=== PATIENT | female | born 1950 | race Caucasian/White ===

== ENCOUNTER 2016-11-04 10:19 | Inpatient (IN) ==
[2016-11-04] MEDS ORDERED: SODIUM CHLORIDE 0.9% 500 ML IV STA (11:12)
--- NOTE | 2016-11-04 11:14 | EKG Report ---
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
[2016-11-04 11:21] LABS: Basophils % 0.4 % (0.0-0.8); Eosinophils # 0.1 10*3/uL (0.0-0.87); Hematocrit 18.3 VOL% (35.7-47.0); Immature Granulocytes % 0.9 %; Immature Granulocytes Absolute 0.04 #; Lymphocytes # 1.3 10*3/uL (1.4-4.0); Mean Corpuscular HGB Conc 32.2 GM/DL (32-36); Mean Corpuscular Hemoglobin 29 PG (27-34); Mean Corpuscular Volume 88.8 FL (87-102); Mean Platelet Volume 9.9 FL (9.6-12.0); Monocytes # 0.6 10*3/uL (0.11-0.8); Monocytes % 12.1 % (1.7-12.7); Neutrophils # 2.6 10*3/uL (1.4-7.4); Neutrophils % 56.6 % (38.7-73.9); Platelet Count 142 T/CUMM (130-400); Red Blood Count 2.06 MC/CUMM (3.8-5.5); Red Cell Distribution Width 14.9 % (9.3-17.3); White Blood Count 4.6 T/CUMM (4-12)
[2016-11-04 11:30] LABS: Hemoglobin 5.9 GM/DL (12.0-16.0)
[2016-11-04 11:30] LABS: Albumin 2.7 G/DL (3.4-5.0); Bilirubin,Total 0.4 MG/DL (0.2-1.0); Osmolality,Calculated 280.5 MOS/KG (273-304); Total Protein 5.4 G/DL (6.4-8.3)
[2016-11-04] MEDS ORDERED: SODIUM CHLORIDE 0.9% 250 ML IV PRN (11:31)
--- NOTE | 2016-11-04 11:34 | Emergency Department Note ---
Quinton Morales Brittany, am scribing for, and in the presence of, Yakov Murray MD 10:37. Trevor Morales Phillip K, MD, personally performed the services described in this documentation, ascribed by Zandra Alcantara in my presence, and it is both accurate and complete . Arrival - Arrival Chief Complaint: Syncope Stated Complaint: near syncopal episode ED Nursing Triage Note: Patient reports three week history of rectal bleeding; which she was previously evaluated at [facility] and discharged one week ago. Today she was at her PCP at the [facility] and begin to feel dizzy , weak, and had a near syncopal episode. She denies nausea, vomiting, or chest pain during the near syncopal episode. Her glucose was 167 per EMS. Mode of Arrival: Stretcher Limitations: No Limitations Source: Patient, RN Notes Reviewed - History of Present Illness HPI Narrative: Patient is a 66 y/o white female presenting to the ED via EMS for further evaluation of near syncopal episode today while visiting her PCP Greer Wynn NP at the [facility]. Patient states that she began upon standing to walk to the to the experience vertigo, weakness, and then began to feel near syncopal. Reports lower back pain x1 week, but denies any recent injuries. Patient denies any associated SOB, chest pain, nausea, or vomiting during this episode. Patient reports a 3 week history of rectal bleeding with which she was seen and evaluated at [facility], DC'd about a week ago. States she presented to see PCP today due to noticing her stools being dark prior to beginning Iron therapy a week ago. Was not on anticoagulant therapy prior having rectal bleeding. History of Diverticulitis. While at [facility] had a scope performed and was told she had a pocket. Patient continued to have rectal bleeding and began to have some vaginal bleeding, she was seen by Dr. Gomez about this but was not told what caused her vaginal bleeding. Was given 2 units of blood about 1.5 weeks ago at [facility] prior to transfer to [facility]. Per EMS patient had a blood glucose level of 167 on the scene and was given a 500 mL bolus of NS en route to the ED. No other complaints. Allergies/Adverse Reactions: Allergies Allergy/AdvReac Type Severity Reaction Status Date / Time Sulfa (Sulfonamide Allergy Intermediate HIVES Verified 08/06/15 09:47 Antibiotics) Review of System - Review of System 12 point system: reviewed and no additional remarkable complaints except as stated - Review of System Constitutional: Present: weakness. Absent: chills, diaphoresis, fever Eyes: Absent: vision change Head/Ears/Nose/Throat: Absent: nasal drainage, sore throat Respiratory: Absent: respiratory distress Cardiovascular: Present: syncope (near). Absent: chest pain Gastrointestinal: Absent: nausea, vomiting Musculoskeletal: Absent: lower back pain Neurological: Present: vertigo Psychiatric: Absent: anxiety, depression Medical,Surgical,& Family Hx - Medical History Cardio: History of: Hypertension Endocrine: History of: Diabetes Mellitus (IDDM) Respiratory: History of: Bronchitis Genitourinary: History of: Recurring Urinary Tract Infections Gastrointestinal: History of: Gastrointestinal Bleed - Surgical History Abdominal Surgeries: Surgical HX of: Colonoscopy, EGD - Family History Family History: Reports;: Family Cancer (Melanoma-brother), Family Diabetes, Family Heart Disease (CHF mother) - Social History Smoking Status: Never smoker Frequency of Alcohol Use: None Type of Drug Use: None Exam Vital Signs: Vital Signs Temperature 99.5 F 11/04/16 10:24 Pulse Rate 74 11/04/16 11:00 Respiratory Rate 17 11/04/16 11:00 Blood Pressure 122/62 11/04/16 11:00 O2 Sat by Pulse Oximetry 100 11/04/16 11:00 - General General appearance: alert, in no apparent distress - Head Head exam: Present: atraumatic, normocephalic, normal inspection - Eye Eye exam: Present: PERRL, EOMI. Absent: normal appearance (pale conjunctiva) - ENT ENT exam: Present: mucous membranes moist. Absent: normal oropharynx (pale mm) - Neck Neck exam: Present: normal inspection, full ROM, trachea midline - Chest Chest inspection: Present: normal inspection, symmetric chest wall rise - Respiratory Respiratory exam: Present: normal lung sounds bilaterally - Cardiovascular Cardiovascular exam: Present: regular rate, normal rhythm, normal heart sounds - Abdominal Exam Abdominal exam: Present: soft, normal bowel sounds. Absent: distention, tenderness - Rectal Exam Rectal exam: Present: heme (+) stool - Extremities Exam Extremities exam: Present: normal inspection - Back Exam Back exam: Present: normal inspection - Neurological Exam Neurological exam: Present: alert, oriented X3, CN II-XII intact. Absent: motor sensory deficit - Psychiatric Psychiatric exam: Present: normal affect, normal mood - Skin Skin exam: Present: warm, dry Results - Labs CBC & BMP: 11/04/16 11:12 11/04/16 10:29 Lab Results: I have reviewed the patients labs Labs: Laboratory Tests 11/04/16 11:12 WBC 4.6 RBC 2.06 L Hgb 5.9 L* Hct 18.3 L Plt Count 142 Lymph # (Auto) 1.3 L Laboratory Tests 11/04/16 Unknown Blood Type O POSITIVE - EKG EKG results: interpreted by DULCE RAMIREZ, sinus rhythm Disposition Clinical Impression: Anemia, Lower GI hemorrhage Case discussed with: patient, patient's family Disposition: Still a Patient Condition: Guarded Additional Instructions: Admit to the hospitalist.
--- NOTE | 2016-11-04 11:56 | XRay Report ---
XR chest 1V portable Indication: Shortness of breath. Chest one view: Comparison 04/30/2016. Heart size and mediastinal contour remain normal. Increased interstitial markings of the lungs now present with peribronchial thickening. No focal pneumonia. Pleural spaces are clear. Impression: Exacerbation of airways disease such as bronchitis. PROCEDURE INTERPRETED AT [facility] DEPARTMENT OF RADIOLOGY Final Report Signed by: Jose Daniel Clifton M.D.
--- NOTE | 2016-11-04 12:34 | Hospitalist History & Physical ---
<Tata Mireles - Last Filed: 11/04/16 13:23> Assessment and Plan (1) Anemia Status: Acute Assessment and plan: Admit to ICU for close monitoring. Tranfuse two units PRBCs stat. Cardiac monitoring. Frequent vitals. IVFs. Protonix infusion. CBC in am. Serial h&h. Consult GI. Current Visit: Yes (2) Lower GI hemorrhage Status: Acute Assessment and plan: Hem pos stool. Consult GI. Current Visit: Yes (3) Diabetes Status: Acute Assessment and plan: Accuchecks achs. SSI. Hgb A1c in the am. Current Visit: Yes History of Present Illness Chief complaint: syncopal episode History of present illness: Ms. Vela is a 66 year old white female with a history of diabetes, bronchitis , and UTI that presented to the ED as a referral from her PCP's office after a syncopal episode. Pt's PCP is Greer Wynn NP at the [facility]. Pt's states that she was walking towards the scale to be weighed when she became lightheaded, dizzy, and weak. Pt. denies any shortness of breath, chest pain, n/ v/d, or anything symptoms during this episode or presently. Pt. goes on to state she has been weak lately. She reports that at the end of September she noticed black stools. She reported to her PCP on October 21, was seen, evaluated and released. After that, she had a syncopal episode and passed out in a store parking lot. She was taken via ambulance to [facility] where she was transfused with 2 units of blood and transferred over to [facility]. On October 26, pt states she underwent a colonoscopy and EGD at [place]. She was told she had polyps. Pt. states she was released with a prescription for iron tablets which she has taken 3 times daily. Pt. also reports vaginal bleeding but was told she was "fine" when she was evaluated by her obgyn Dr. Gomez. Pt. denies any other vanessa bleeding or blood loss. The patient was at her PCP's office today for evaluation of her weakness. Prior to arrival to our ED, pt received a bolus of NS per EMS. Pt's h&h noted to be 5.9/18.3 on arrival at our facility. Pt. will be admitted to the hospitalist service for further evaluation and treatment. She will be placed in the ICU for close monitoring. Her treatment will consist of IVF hydration and blood transfusion. We will consult GI to assist in the care of the patient. Allergies Allergy/AdvReac Type Severity Reaction Status Date / Time Sulfa (Sulfonamide Allergy Intermediate HIVES Verified 08/06/15 09:47 Antibiotics) Medical,Surgical,& Family Hx - Medical History Cardio: History of: Hypertension Endocrine: History of: Diabetes Mellitus (IDDM) Respiratory: History of: Bronchitis Genitourinary: History of: Recurring Urinary Tract Infections Gastrointestinal: History of: Gastrointestinal Bleed - Surgical History Abdominal Surgeries: Surgical HX of: Colonoscopy, EGD - Family History Family History: Reports;: Family Cancer (Melanoma-brother), Family Diabetes, Family Heart Disease (CHF mother) - Social History Smoking Status: Never smoker Frequency of Alcohol Use: None Type of Drug Use: None Marital Status: Single Lives With:: Alone Functional capacity: independent ambulation - Constitutional Constitutional: Present: fatigue, weakness. Absent: chills, fever(s) - EENT Eyes: Absent: blurry vision, loss of vision Ears: Absent: decreased hearing Nose, mouth and throat: Absent: epistaxis - Cardiovascular Cardiovascular: Present: dyspnea on exertion, edema. Absent: chest pain at rest - Respiratory Respiratory: Present: dyspnea. Absent: hemoptysis - Gastrointestinal Gastrointestinal: Absent: abdominal pain, nausea, vomiting - Genitourinary Genitourinary: Present: abnormal vaginal bleeding. Absent: difficulty urinating - Musculoskeletal Musculoskeletal: Present: back pain - Neurological Neurological: Present: dizziness, syncope. Absent: confusion - Endocrine Endocrine: Present: fatigue - Hematologic/Lymphatic Hematologic/Lymphatic: Present: easy bleeding, easy bruising Exam - Constitutional Vitals: Period Temp Pulse Resp BP Sys/Rae Pulse Ox Last 24 Hr 99.5 F-99.5 F 56-79 15-17 122-131/62-74 100-100 General appearance: no acute distress, over weight - Head Head exam: Present: normal inspection, normocephalic - Eye Eye exam: Present: EOMI. Absent: scleral icterus Pupils: Present: CARLY - Neck Neck exam: Present: normal inspection - Respiratory Respiratory exam: Present: clear to auscultation bilaterally. Absent: wheezes - Cardiovascular Cardiovascular exam: Present: regular rate and rhythm. Absent: tachycardia - GI/Abdominal GI/Abdominal exam: Present: normal bowel sounds, soft. Absent: tenderness - Extremities Exam Extremities exam: Present: normal capillary refill, full ROM, edema - Neurological Exam Neurological exam: Present: alert, oriented X3 - Psychiatric Psychiatric exam: Present: normal affect, normal mood - Skin Skin exam: Present: normal color, warm, dry Results - Labs CBC & BMP: 11/04/16 11:12 11/04/16 10:29 Lab Results: I have reviewed the past 24 hour labs <Maurice Sorto III - Last Filed: 11/04/16 18:56> History of Present Illness History of present illness: Ms. Vela is a 66 year old female with recent history of GI blood loss. Patient was interviewed and examined independently today. I agree with physical exam findings, clinical impression, and treatment plan outlined by nurse practitioner Tata Mireles in H&P documented earlier today. Exam - Constitutional Vitals: Period Temp Pulse Resp BP Sys/Rae Pulse Ox Last 24 Hr 97.2 F-99.5 F 56-99 15-22 73-137/54-86 100-100 Results - Labs CBC & BMP: 11/04/16 17:06 11/04/16 10:29
[2016-11-04] MEDS ORDERED: ALBUTEROL 2.5 MG/3 ML NEB RESP TX PRN (12:59)
[2016-11-04] MEDS ORDERED: GLUCAGON 1 MG VIAL IM PRN (12:59)
[2016-11-04] MEDS ORDERED: ACETAMINOPHEN 325 MG TABLET PO PRN (12:59)
[2016-11-04] MEDS ORDERED: ONDANSETRON 4 MG/2 ML VIAL IV PRN (12:59)
[2016-11-04] MEDS ORDERED: DEXTROSE 50% 25 GM/50 ML SYRINGE IV PRN (12:59)
[2016-11-04] MEDS ORDERED: PANTOPRAZOLE INJ 200 MG in SODIUM CHLORIDE 0.9% 250 ML IV SCH (14:00)
--- NOTE | 2016-11-04 14:00 | EKG Report ---
Stationary ECG Study [facility] Test Date: 11/04/2016 1:59:59 PM Pat Name: ZAKIYA MARTINEZ Department: Room: 130 Gender: F Prop Setter: : 1950 Requested by: Yakov Velasquez Order Number: [id number] Reading MD: LOTUS AVILA Intervals [place] Rate: 73 P: 34 [place]: 158 QRS: 3 QRSD: 96 T: 35 QT: 407 QTc: 433 Interpretive Statements SINUS RHYTHM WITH SINUS ARRHYTHMIA LOW QRS VOLTAGE IN PRECORDIAL LEADS MINIMAL ST DEPRESSION Electronically Signed On 11-04-16 15:53:24 CDT by LOTUS AVILA [id number]
--- NOTE | 2016-11-04 15:44 | Gastrointestinal Consult Note ---
Assessment and Plan (1) Acute posthemorrhagic anemia Status: Acute Assessment and plan: We do not have the previous workup from [facility] however this patient was worked up that recently, I suspect this occurred shortly after I saw the patient in my office. She did not appear to be experiencing is severe enough symptoms to warrant a CBC at that time but in retrospect this would have been helpful in getting her transfused and/or admitted earlier to our institution. Records from [facility] would certainly be crucial in this workup as we do not know if she is having a post polypectomy bleed versus the discovery of some other bleeding source during her workup. This included colonoscopy and EGD by report and rumor indicates that this may have been a diverticular bleed. If their workup did not discern the source likely will need to pursue a capsule endoscopy as our next evaluation if today's tagged red blood cell scan done acutely does not demonstrate a bleeding source. Potentially a tagged red blood cell scan, if positive, could help us target an area to look in for acute bleeding. She is obtaining 2 units of packed red blood cells now. We have requested records from [place] as well. Agree with use of Protonix twice daily in the interim. Current Visit: Yes (2) Personal history of colonic polyps Status: Acute Assessment and plan: Again this patient was not felt to require repeat colonoscopy by me until 2019, she had recent polyp but we would certainly like to be able to get the pathology of this polyp to determine when her next colonoscopy should be. Current Visit: Yes (3) History of melena Status: Acute Assessment and plan: Please see HPI for full details of last upper endoscopy which was done back in August 2013, the patient is been having some black stools recently but is also taking iron 3 times daily. She has been on Protonix to block the acid in her stomach is not clear what [facility] saw in her stomach but will try and obtain these old records for evaluation. If the tagged red blood cell scan shows bleeding from the stomach will likely repeat the upper endoscopy. Observe the patient for stability of hematocrit in the interim with Protonix twice daily. Clear liquid diet in the interim until we analyzed the results with decisions based on tagged red blood cell scan. Again she might be best served by a capsule endoscopy. Current Visit: Yes History of Present Illness Chief complaint: Acute GI bleeding of unclear site, ?Post polypectomy? 18.3% HCT History of present illness: Ms. Vela is a 66 year old female who was actually just seen in the office as recently as 10/22/16 for melena. She had a previous colonoscopy done on 05/03/14 at which time she had no polyps noted just some diverticulosis and internal hemorrhoids however the patient did have a prior history of polyps in the past and was felt to require repeat colonoscopy in 5 years i.e. April 2019. She did well up until approximately 10/14/16 when she developed the onset of melena. She denies uses of NSAIDs, her magnesium was low but this was being treated with the high-dose magnesium oxide the patient was placed back on her Protonix at that time and she was scheduled to be rescoped. She previously had upper endoscopy done on 09/05/13 which showed a hyperplastic gastric polyp and mild diffuse gastritis but no evidence of malignancy and no Helicobacter pylori. She had been having dysphagia but this was improved. At that point we had scheduled the patient to undergo upper endoscopy. Unfortunately the patient had worsening of her symptoms while waiting the upper endoscopy and unfortunately had a syncopal event in a store parking lot and was brought to [facility] where she was transfused with 2 units packed red blood cells and transferred to [facility] where an unknown screen maker perform both EGD and colonoscopy on this patient. She was said to have had polyps at that point but in my discussions with the patient sounds like she actually had a diverticular type bleed on the basis of their workup. At this time the patient continues to have black stools but is also taking iron and so it is not clear if this is the results of upper GI bleeding. We need to obtain old records on this patient and if no bleeding source was identified upon the evaluation by a [facility] we may need to pursue capsule endoscopy as our next course provided the bleeding scan we are ordering today is negative. If positive bleeding scan is noted this will certainly help us target our endoscopy to make sure the bleeding is controlled. Unfortunately is not inconceivable the patient may have had a second post polypectomy bleed after the recent colonoscopy done at [place] to further complicate the picture. She is also been identified as having moderate hypomagnesemia and is on a very large dose magnesium oxide for this. She has been having diarrhea at home but no nausea, vomiting, fevers, chills, and no heartburn. She has not noticed any bright red blood per rectum. Home Medications Medication Instructions Recorded Confirmed Type Ferrous Sulfate 325 mg PO DAILY 11/04/16 11/04/16 History Furosemide [Furosemide] 20 mg PO DAILY 11/04/16 11/04/16 History Insulin Glargine [Lantus] 20 unit SUBCUT BEDTIME 11/04/16 11/04/16 History Magnesium Oxide [Magox 400] 800 mg PO BID 11/04/16 11/04/16 History Metformin HCl [Metformin HCl] 1,000 mg PO AC SUPPER 11/04/16 11/04/16 History Pantoprazole Sodium [Pantoprazole 40 mg PO DAILY 11/04/16 11/04/16 History Sodium] Potassium Chloride [Potassium 20 meq PO DAILY 11/04/16 11/04/16 History Chloride] Allergies Allergy/AdvReac Type Severity Reaction Status Date / Time Sulfa (Sulfonamide Allergy Intermediate HIVES Verified 08/06/15 09:47 Antibiotics) Medical,Surgical,& Family Hx - Medical History Cardio: History of: Hypertension Endocrine: History of: Diabetes Mellitus (IDDM) Respiratory: History of: Bronchitis Genitourinary: History of: Recurring Urinary Tract Infections Gastrointestinal: History of: Diverticulitis/ Diverticulosis, Gastrointestinal Bleed, Hemorrhoids, Polyps - Surgical History Abdominal Surgeries: Surgical HX of: Colonoscopy, EGD - Family History Family History: Reports;: Family Cancer (Melanoma-brother), Family Diabetes, Family Heart Disease (CHF mother) - Social History Smoking Status: Never smoker Frequency of Alcohol Use: None Type of Drug Use: None Review of systems: Constitutional: Denies fever, chills, nausea, and vomiting Eyes: Denies dry eyes, and scleral icterus HENT: Denies headaches Cardiovascular: Denies acute chest pain and claudication Respiratory: Denies shortness of breath, wheezing, and difficulty breathing, denies cough Gastrointestinal: As noted in the HPI Genitourinary: Denies dysuria and hematuria Neurologic: Denies vision loss, and loss of sensation Musculoskeletal: Admits to some joint swelling, joint stiffness, and muscular weakness Psychiatric: Denies depression and randall symptoms Heme-Lymph: Denies easy bruising, lymph node enlargement or tenderness, night sweats, excessive bleeding Allergies-immunologic: Denies pruritus and rhinorrhea Exam - Constitutional Vitals: Period Temp Pulse Resp BP Sys/Rae Pulse Ox Last 24 Hr 98 F-99.5 F 56-81 15-22 103-137/59-86 100-100 General appearance: no acute distress Exam: Constitutional: Well-developed, well-nourished, alert, and in no acute distress Head and face: Head: Normocephalic atraumatic Eyes: Conjunctiva without injection, no gross scleral icterus, pupils equal and round bilaterally Ears: Intact to conversation in both ears Nose: External appearance is normal, nares patent Mouth: Oral mucous membranes moist without erythema dentition noted to be without erosion Neck: Normal appearance, no masses or tenderness, trachea midline Thyroid: Gland midline and appropriate size for age Respiratory: Normal respiratory effort, clear to auscultation without wheezes, rhonchi or rales Cardiovascular: Regular rate and rhythm, normal S1, S2, the exam is without rubs, murmurs or gallops. Gastrointestinal: Nontender to palpation, normal active bowel sounds, tone normal without rigidity or guarding, no masses present, no hepatomegaly, no spleen tip felt. Rectum shows good tone no external fissures or fistulas stool is present trace black and grossly guaiac positive Lymphatic: Neck without adenopathy, axilla without lymphadenopathy present Musculoskeletal: Right and left lower extremities without evidence of edema Skin and subcutaneous tissue: No rashes or ulcerations noted, normal skin turgor, digits and nails without clubbing/cyanosis/deformities. The patient has pretibial hyperpigmentation consistent with venous stasis bilaterally. Neurologic: The patient is grossly oriented to person place and time, cranial nerves show tongue movements are normal with normal tongue extrusion midline, light touch sensation is intact. Light touch is extremely tender on the bilateral lower extremities due to peripheral neuropathy. Psychiatric: No hallucinations or delusions are present, does not appear depressed Results - Labs CBC & BMP: 11/04/16 11:12 11/04/16 10:29
[2016-11-04 17:16] LABS: Hematocrit 21.6 VOL% (35.7-47.0); Hemoglobin 6.9 GM/DL (12.0-16.0)
--- NOTE | 2016-11-04 17:32 | Nuclear Medicine Report ---
Exam: NM GI bleeding Date: 11/04/2016 3:07 PM Comparison: None Indication: Gastrointestinal bleeding Technique:[Patient injected with 20 mCi technetium 99m PYP/tagged RBC. GI bleeding scans obtained. Findings: No evidence of acute gastrointestinal bleeding. Impression: Negative GI bleeding scan. PROCEDURE INTERPRETED AT [facility] DEPARTMENT OF RADIOLOGY Final Report Signed by: Dr. Jessica Fernandez
[2016-11-04] MEDS: SODIUM CHLORIDE 0.9% 1,000 ML IV SCH ×2 (17:39→23:51)
[2016-11-04] MEDS: INSULIN LISPRO 100 UNIT/ML SUBCUT SCH ×2 (17:40→22:16)
[2016-11-04 21:24] LABS: Hematocrit 23.7 VOL% (35.7-47.0); Hemoglobin 7.8 GM/DL (12.0-16.0)
[2016-11-05 05:39] LABS: Basophils % 0.5 % (0.0-0.8); Eosinophils # 0.2 10*3/uL (0.0-0.87); Eosinophils % 3.8 % (0.00-10.9); Hematocrit 22.6 VOL% (35.7-47.0); Hemoglobin 7.5 GM/DL (12.0-16.0); Immature Granulocytes % 0.5 %; Immature Granulocytes Absolute 0.02 #; Lymphocytes # 1.3 10*3/uL (1.4-4.0); Lymphocytes % 28.4 % (21.3-54.2); Mean Corpuscular HGB Conc 33.2 GM/DL (32-36); Mean Corpuscular Hemoglobin 29 PG (27-34); Mean Corpuscular Volume 87.6 FL (87-102); Monocytes # 0.5 10*3/uL (0.11-0.8); Neutrophils # 2.5 10*3/uL (1.4-7.4); Neutrophils % 55.8 % (38.7-73.9); Platelet Count 129 T/CUMM (130-400); Red Blood Count 2.58 MC/CUMM (3.8-5.5); White Blood Count 4.4 T/CUMM (4-12)
[2016-11-05 05:41] LABS: INR 1.2; PT Patient Result 12.5 SECS
[2016-11-05 06:19] LABS: Osmolality,Calculated 282.1 MOS/KG (273-304); Potassium 3.9 MMOL/L (3.5-5.1); Risk Ratio 2.92; Thyroid Stimulating Hormone 2.73 uIU/ml (0.358-3.74); VLDL CHOLESTEROL 22.8 MG/DL
--- NOTE | 2016-11-05 06:48 | Gastrointestinal Progress Note ---
Assessment and Plan (1) Acute posthemorrhagic anemia Status: Acute Assessment and plan: We do not have the previous workup from [facility] however this patient was worked up that recently, I suspect this occurred shortly after I saw the patient in my office. She did not appear to be experiencing is severe enough symptoms to warrant a CBC at that time but in retrospect this would have been helpful in getting her transfused and/or admitted earlier to our institution. Records from [facility] would certainly be crucial in this workup as we do not know if she is having a post polypectomy bleed versus the discovery of some other bleeding source during her workup. This included colonoscopy and EGD by report and rumor indicates that this may have been a diverticular bleed. If their workup did not discern the source likely will need to pursue a capsule endoscopy as our next evaluation if today's tagged red blood cell scan done acutely does not demonstrate a bleeding source. Potentially a tagged red blood cell scan, if positive, could help us target an area to look in for acute bleeding. She is obtaining 2 units of packed red blood cells now. We have requested records from [facility] as well. Agree with use of Protonix twice daily in the interim. 11/05/16--No findings on the bleeding scan obtained yesterday. We do not have any idea as to whether this was a post polypectomy bleed versus an upper GI bleed but will proceed with the repeat upper endoscopy given the gravity of the blood loss to 18%. Awaiting receipt of information from [facility]. Current Visit: Yes (2) Personal history of colonic polyps Status: Acute Assessment and plan: Again this patient was not felt to require repeat colonoscopy by me until 2019, she had recent polyp but we would certainly like to be able to get the pathology of this polyp to determine when her next colonoscopy should be. 11/05/16--This was a likely loss from post polypectomy bleed provided there is no gross evidence of bleeding one-way perform upper endoscopy today. Tagged red blood cell scan did not provide additional information unfortunately. We are still waiting for information from the EGD colonoscopy from [facility] done a short while ago. Current Visit: Yes (3) History of melena Status: Acute Assessment and plan: Please see HPI for full details of last upper endoscopy which was done back in August 2013, the patient is been having some black stools recently but is also taking iron 3 times daily. She has been on Protonix to block the acid in her stomach is not clear what [facility] saw in her stomach but will try and obtain these old records for evaluation. If the tagged red blood cell scan shows bleeding from the stomach will likely repeat the upper endoscopy. Observe the patient for stability of hematocrit in the interim with Protonix twice daily. Clear liquid diet in the interim until we analyzed the results with decisions based on tagged red blood cell scan. Again she might be best served by a capsule endoscopy. 11/05/16--EGD to occur today, addendum to follow. Current Visit: Yes Gastroenterology - PN: Subj Interval history: No further blood loss over the evening time, hematocrit went up to 23% is now down to 22% post equilibration. She does not have any abdominal pain, the tagged red blood cell scan done yesterday was negative. This may be a post polypectomy bleed but because of the dark stool we will go ahead and perform upper endoscopy to look for evidence of an upper bleeding source. Exam (Progress Note) - Constitutional Vitals: Period Temp Pulse Resp BP Sys/Rae Pulse Ox Last 24 Hr 97.2 F-99.5 F 56-99 11-25 73-137/46-86 93-100 General appearance: no acute distress - Head Head exam: Present: normocephalic - Eye Eye exam: Present: EOMI Pupils: Present: CARLY - Respiratory Respiratory exam: Present: clear to auscultation bilaterally - Cardiovascular Cardiovascular exam: Present: regular rate and rhythm - GI/Abdominal GI/Abdominal exam: Present: normal bowel sounds, soft. Absent: distended, tenderness, rebound - Neurological Exam Neurological exam: Present: alert, oriented X3 - Skin Skin exam: Present: warm Results - Labs CBC & BMP: 11/05/16 04:48 11/05/16 04:48
[2016-11-05] MEDS ORDERED: FUROSEMIDE 20 MG/2 ML VIAL IV PRN ×2 (06:57→17:45)
[2016-11-05] MEDS ORDERED: SODIUM CHLORIDE 0.9% 250 ML IV PRN (06:57)
[2016-11-05] MEDS: SODIUM CHLORIDE 0.9% 1,000 ML IV SCH (10:01)
[2016-11-05] MEDS: INSULIN LISPRO 100 UNIT/ML SUBCUT SCH ×4 (10:37→20:56)
[2016-11-05] MEDS: PANTOPRAZOLE 40 MG TABLET PO SCH (10:39)
[2016-11-05] MEDS ORDERED: FUROSEMIDE 20 MG/2 ML VIAL IV ONE (14:54)
--- NOTE | 2016-11-05 16:28 | Hospitalist Progress Note ---
Assessment and Plan - Time spent with patient Time spent with patient: Greater than 30 minutes (1) Lower GI hemorrhage Status: Acute Assessment and plan: Patient is a 66-year-old female evaluated at [facility] last week for rectal bleeding. Patient completed upper endoscopy and colonoscopy reports requested from [facility]. I appreciate review by Dr. Gagnon. If upper endoscopy and colonoscopy were infected completed and thought to be normal studies Dr. Mcmahan will decide if patient should undergo pill capsule endoscopy for small intestine evaluation. Patient remains hemodynamically stable. Despite receiving 2 units packed red blood transfusion overnight her a.m. hemoglobin measures only 7.5 g percent. An additional 2 unit packed red blood cells have been ordered. Current Visit: Yes (2) Type 2 diabetes mellitus Status: Chronic Assessment and plan: 11/05/2016: Fair bedside glucose checks. Hemoglobin A1c 6.2% today. Patient also has normal range TSH and free T4. Current Visit: Yes (3) Anemia Status: Chronic Assessment and plan: 11/05/2016: Multiple causes including acute and chronic GI blood loss. No actively bleeding GI site identified on GI bleeding scan yesterday. 2 additional unit packed red blood cell transfusion today as discussed above. Current Visit: Yes (4) Thrombocytopenia Status: Acute Assessment and plan: 11/05/2016: Today's platelet count measures 129,000. Patient is not receiving medications known to commonly contribute to thrombocytopenia. Continue monitoring with daily platelet count. Current Visit: Yes Hospitalist: Subjective Interval history: 11/05/2016: Patient denies any visible rectal bleeding since admission yesterday. She denies abdominal pain nausea or vomiting. Exam - Constitutional Vitals: Period Temp Pulse Resp BP Sys/Rae Pulse Ox Last 24 Hr 97.2 F-98.7 F 67-99 11-25 73-128/46-75 93-100 General appearance: over weight - Head Head exam: Present: normal inspection - Eye Eye exam: Present: EOMI - ENT ENT exam: Present: normal exam - Neck Neck exam: Absent: meningismus, tenderness - Respiratory Respiratory exam: Present: clear to auscultation bilaterally. Absent: rales, wheezes - Cardiovascular Cardiovascular exam: Present: regular rate and rhythm - GI/Abdominal GI/Abdominal exam: Present: normal bowel sounds, distended, soft. Absent: tenderness, rebound - Extremities Exam Extremities exam: Present: normal inspection. Absent: calf tenderness, edema - Neurological Exam Neurological exam: Present: alert, oriented X3 - Psychiatric Psychiatric exam: Present: normal affect - Skin Skin exam: Present: normal color, warm. Absent: rash Results - Labs CBC & BMP: 11/05/16 04:48 11/05/16 04:48
[2016-11-06] MEDS: diphenhydrAMINE CAP 25 MG CAPSULE PO PRN ×4 (01:22→20:54)
[2016-11-06] MEDS: SODIUM CHLORIDE 0.9% 1,000 ML IV SCH ×4 (05:15→18:15)
[2016-11-06 05:31] LABS: Basophils % 0.6 % (0.0-0.8); Eosinophils # 0.2 10*3/uL (0.0-0.87); Eosinophils % 3.6 % (0.00-10.9); Hematocrit 26.1 VOL% (35.7-47.0); Hemoglobin 8.5 GM/DL (12.0-16.0); Immature Granulocytes % 0.4 %; Immature Granulocytes Absolute 0.02 #; Lymphocytes # 1.1 10*3/uL (1.4-4.0); Lymphocytes % 23.5 % (21.3-54.2); Mean Corpuscular HGB Conc 32.6 GM/DL (32-36); Mean Corpuscular Hemoglobin 28 PG (27-34); Mean Platelet Volume 9.8 FL (9.6-12.0); Monocytes # 0.6 10*3/uL (0.11-0.8); Monocytes % 12.3 % (1.7-12.7); Neutrophils # 2.8 10*3/uL (1.4-7.4); Neutrophils % 59.6 % (38.7-73.9); Platelet Count 125 T/CUMM (130-400); Red Cell Distribution Width 14.8 % (9.3-17.3); White Blood Count 4.7 T/CUMM (4-12)
[2016-11-06 05:57] LABS: INR 1.1
[2016-11-06 06:11] LABS: Calcium 7.9 MG/DL (8.5-10.1); Osmolality,Calculated 282.4 MOS/KG (273-304); Potassium 3.9 MMOL/L (3.5-5.1)
--- NOTE | 2016-11-06 06:20 | Gastrointestinal Progress Note ---
Assessment and Plan (1) Acute posthemorrhagic anemia Status: Acute Assessment and plan: We do not have the previous workup from [facility] however this patient was worked up that recently, I suspect this occurred shortly after I saw the patient in my office. She did not appear to be experiencing is severe enough symptoms to warrant a CBC at that time but in retrospect this would have been helpful in getting her transfused and/or admitted earlier to our institution. Records from [facility] would certainly be crucial in this workup as we do not know if she is having a post polypectomy bleed versus the discovery of some other bleeding source during her workup. This included colonoscopy and EGD by report and rumor indicates that this may have been a diverticular bleed. If their workup did not discern the source likely will need to pursue a capsule endoscopy as our next evaluation if today's tagged red blood cell scan done acutely does not demonstrate a bleeding source. Potentially a tagged red blood cell scan, if positive, could help us target an area to look in for acute bleeding. She is obtaining 2 units of packed red blood cells now. We have requested records from [facility] as well. Agree with use of Protonix twice daily in the interim. 11/05/16--No findings on the bleeding scan obtained yesterday. We do not have any idea as to whether this was a post polypectomy bleed versus an upper GI bleed but will proceed with the repeat upper endoscopy given the gravity of the blood loss to 18%. 11/06/16--the patient's hematocrit remains stable/improved after additional blood given up to 26% now. She is taking solids fine. Information from [facility] indicates the patient had basically no blood loss in the upper GI tract and mild gastritis which was Helicobacter pylori negative by pathology. She did end up having at least 4 polyps taken off throughout the colon, two these were adenomatous. No bleeding source was seen but there was diverticulosis noted thought to be a source of the bleeding. She is not actively bleeding now and is eating again with a stable hematocrit, I would transfer her upstairs, check a H&H tonight and a CBC tomorrow and discharge her if she is stable. She should follow-up in my clinic in 2 months for recheck hematocrit and to consider capsule endoscopy if this is not improved or has dropped. Again my thought is that this is a post polypectomy bleed as opposed to recurrent diverticular bleed. No repeat endoscopy planned this admission. Current Visit: Yes (2) Personal history of colonic polyps Status: Acute Assessment and plan: Again this patient was not felt to require repeat colonoscopy by me until 2019, she had recent polyp but we would certainly like to be able to get the pathology of this polyp to determine when her next colonoscopy should be. 11/05/16--This was a likely loss from post polypectomy bleed provided there is no gross evidence of bleeding on bleeding scan, no need to perform upper or lower endoscopy today. Tagged red blood cell scan did not provide additional information unfortunately. See reports from [facility]. Current Visit: Yes (3) History of melena Status: Acute Assessment and plan: Please see HPI for full details of last upper endoscopy which was done back in August 2013, the patient is been having some black stools recently but is also taking iron 3 times daily. She has been on Protonix to block the acid in her stomach is not clear what [facility] saw in her stomach but will try and obtain these old records for evaluation. If the tagged red blood cell scan shows bleeding from the stomach will likely repeat the upper endoscopy. Observe the patient for stability of hematocrit in the interim with Protonix twice daily. Clear liquid diet in the interim until we analyzed the results with decisions based on tagged red blood cell scan. Again she might be best served by a capsule endoscopy. 11/05/16--EGD to occur today, addendum to follow. [Addendum: This was canceled after review of reports] 11/06/16--Although EGD had been planned this was canceled after reports from [facility] were reviewed. This seems more in line with a post polypectomy bleed. Suggest watching 1 more day and then discharging when stable tomorrow to follow- up in my office in 2 months. Avoid anticoagulants, return to my clinic earlier if the patient believes she has started bleeding again. Current Visit: Yes Gastroenterology - PN: Subj Interval history: The patient did fine over the evening time although she is complaining some itching for which she is getting some Benadryl. May be a reaction to the blood. His last blood pressure was a bit low, 86/47--> 95/59 (on recheck), but no change in pulse out of the 60s and other blood pressures ranging typically in the 100s over 60s. Her hematocrit is improved to 26%. I suggest watching her for 1 more day, up on the medical floor. Exam (Progress Note) - Constitutional Vitals: Period Temp Pulse Resp BP Sys/Rae Pulse Ox Last 24 Hr 97.4 F-98.8 F 65-80 10-22 86-124/47-71 95-100 General appearance: no acute distress, other (Itching) - Head Head exam: Present: normocephalic - Eye Eye exam: Present: EOMI Pupils: Present: CARLY - Respiratory Respiratory exam: Present: clear to auscultation bilaterally - Cardiovascular Cardiovascular exam: Present: regular rate and rhythm - GI/Abdominal GI/Abdominal exam: Present: normal bowel sounds, soft. Absent: distended, tenderness, rebound - Extremities Exam Extremities exam: Absent: edema - Neurological Exam Neurological exam: Present: alert, oriented X3 - Skin Skin exam: Present: warm Results - Labs CBC & BMP: 11/06/16 05:07 11/06/16 05:07
[2016-11-06] MEDS: INSULIN LISPRO 100 UNIT/ML SUBCUT SCH ×4 (07:30→20:55)
[2016-11-06] MEDS: PANTOPRAZOLE 40 MG TABLET PO SCH (08:33)
--- NOTE | 2016-11-06 15:49 | Hospitalist Progress Note ---
Assessment and Plan (1) Lower GI hemorrhage Status: Acute Assessment and plan: Patient is a 66-year-old female evaluated at [facility] last week for rectal bleeding. Patient completed upper endoscopy and colonoscopy reports requested from [facility]. I appreciate review by Dr. Gagnon. If upper endoscopy and colonoscopy were infected completed and thought to be normal studies Dr. Mcmahan will decide if patient should undergo pill capsule endoscopy for small intestine evaluation. Patient remains hemodynamically stable. Despite receiving 2 units packed red blood transfusion overnight her a.m. hemoglobin measures only 7.5 g percent. An additional 2 unit packed red blood cells have been ordered. Current Visit: Yes (2) Type 2 diabetes mellitus Status: Chronic Assessment and plan: 11/05/2016: Fair bedside glucose checks. Hemoglobin A1c 6.2% today. Patient also has normal range TSH and free T4. 11/06/2016: Improving control. Hemoglobin A1c measured 6.2%; patient has normal range free T4 and TSH. Current Visit: Yes (3) Anemia Status: Chronic Assessment and plan: 11/05/2016: Multiple causes including acute and chronic GI blood loss. No actively bleeding GI site identified on GI bleeding scan yesterday. 2 additional unit packed red blood cell transfusion today as discussed above. 11/06/2016: Patient has received a total of 4 unit packed red blood cell transfusion this hospital stay. Plan is to repeat H&H this afternoon. If it is stable monitor patient overnight. Repeat CBC in a.m. If CBC is stable and patient is otherwise clinically stable she will discharge home tomorrow. I appreciate review and input from Dr. Gagnon. Current Visit: Yes (4) Thrombocytopenia Status: Acute Assessment and plan: 11/05/2016: Today's platelet count measures 129,000. Patient is not receiving medications known to commonly contribute to thrombocytopenia. Continue monitoring with daily platelet count. 11/06/2016: Thrombocytopenia is mild. Today's platelet count measures 125,000. Continue monitoring. Current Visit: Yes Hospitalist: Subjective Interval history: 11/06/2016: Patient reports no bowel movement since admission. Her usual pattern is 1 bowel movement daily. I ordered a dose of sorbitol today. Patient denies abdominal pain. She completed an additional 2 unit packed red blood cell transfusion yesterday. Patient is not in acute distress. She is tolerating 100% of solid food meal served. Exam - Constitutional Vitals: Period Temp Pulse Resp BP Sys/Rae Pulse Ox Last 24 Hr 97.0 F-98.8 F 65-80 10-22 86-127/47-85 95-100 General appearance: over weight - Head Head exam: Present: normal inspection - Eye Eye exam: Present: EOMI - ENT ENT exam: Present: normal exam - Neck Neck exam: Absent: meningismus, tenderness - Respiratory Respiratory exam: Present: clear to auscultation bilaterally. Absent: rales, stridor, wheezes - Cardiovascular Cardiovascular exam: Present: regular rate and rhythm - GI/Abdominal GI/Abdominal exam: Present: normal bowel sounds, soft. Absent: guarding, tenderness, rebound - Extremities Exam Extremities exam: Present: normal inspection. Absent: calf tenderness, edema - Back Exam Back exam: Absent: CVA tenderness (L), CVA tenderness (R) - Neurological Exam Neurological exam: Present: oriented X3 - Psychiatric Psychiatric exam: Present: normal affect, normal mood - Skin Skin exam: Present: normal color, warm. Absent: rash Results - Labs CBC & BMP: 11/06/16 05:07 11/06/16 05:07
[2016-11-06 18:44] LABS: Hematocrit 28.1 VOL% (35.7-47.0); Hemoglobin 9.2 GM/DL (12.0-16.0)
[2016-11-07] MEDS: SODIUM CHLORIDE 0.9% 1,000 ML IV SCH ×2 (04:28→11:37)
[2016-11-07] MEDS: diphenhydrAMINE CAP 25 MG CAPSULE PO PRN (04:30)
[2016-11-07 06:41] LABS: Basophils % 0.4 % (0.0-0.8); Eosinophils # 0.1 10*3/uL (0.0-0.87); Eosinophils % 2.8 % (0.00-10.9); Hematocrit 26.2 VOL% (35.7-47.0); Hemoglobin 8.7 GM/DL (12.0-16.0); Immature Granulocytes % 0.4 %; Immature Granulocytes Absolute 0.02 #; Lymphocytes # 0.9 10*3/uL (1.4-4.0); Lymphocytes % 18.4 % (21.3-54.2); Mean Corpuscular HGB Conc 33.2 GM/DL (32-36); Mean Corpuscular Hemoglobin 28 PG (27-34); Mean Corpuscular Volume 85.6 FL (87-102); Mean Platelet Volume 9.6 FL (9.6-12.0); Monocytes # 0.7 10*3/uL (0.11-0.8); Monocytes % 14.4 % (1.7-12.7); Neutrophils # 3.2 10*3/uL (1.4-7.4); Neutrophils % 63.6 % (38.7-73.9); Platelet Count 115 T/CUMM (130-400); Red Blood Count 3.06 MC/CUMM (3.8-5.5); Red Cell Distribution Width 14.3 % (9.3-17.3)
[2016-11-07 06:44] LABS: Hematocrit 26.5 VOL% (35.7-47.0); Hemoglobin 8.9 GM/DL (12.0-16.0)
[2016-11-07] MEDS: INSULIN LISPRO 100 UNIT/ML SUBCUT SCH ×2 (08:28→11:59)
[2016-11-07] MEDS: PANTOPRAZOLE 40 MG TABLET PO SCH (08:43)
--- NOTE | 2016-11-07 08:56 | Discharge Summary ---
<Poncho Rossi - Last Filed: 11/07/16 08:38> Hospital Course - Hospital Course Hospital Course: Ms. Vela is a 66 year old female who presented to the [facility] emergency room on 11/04/2016 for further evaluation of a syncopal episode after visiting her PCP. On admission, the patient was found to be anemic with H&H of 5.9 and 18.3 thought to be secondary to a lower GI bleed. She was transfused with 4 units of blood and gasteroenterology was consulted for assistance. Upon review of the patient's records from [facility] dated 10/25-08/2016, where the patient had undergone both an upper endoscopy and colonoscopy, Dr. Gagnon concluded that the likely source of bleeding was post polypectomy sites. [facility] records reported mild gastritis Helicobacter pylori negative by pathology. At least 4 polyps were removed from patient's colon. 2 of these were adenomatous. No active bleeding source was reported. Patient does have diverticulosis. Her bleeding was thought to be from colon diverticuli. No active GI bleeding noted during this hospital stay. Dr. Gagnon recommends capsule endoscopy if patient's hemoglobin has decreased at the time of clinic follow-up within the next 1 month. He recommends observation without repeat endoscopy at this time. Clinically, she has responded well to the transfusions with H&H 8.7 and 26.2 on the morning of hospital discharge date. She is tolerating a solid food diet without nausea, vomiting, diarrhea, or increased abdominal pain. The remainder of her hospital course was relatively uncomplicated and patient is stable for discharge home today. She should follow up with Dr. Gagnon's clinic in 1 month and with her PCP in 1-2 weeks. Any recommended medication changes have been outlined in the discharge orders. - Time spent with patient Time with patient DS: Greater than 30 minutes Discharge Plan - Discharge Data Disposition: Disch To Home/Self Care - Discharge Medications New Pantoprazole Tab [Protonix Tab] 40 mg PO DAILY #30 tablet Albuterol Neb [Proventil Neb] 2.5 mg RESP TX Q6HR PRN #120 PRN Reason: Shortness Of Breath/Wheezing Continue Furosemide 20 mg PO DAILY #30 Insulin Glargine [Lantus] 20 unit SUBCUT BEDTIME #500 units Magnesium Oxide [Magox 400] 800 mg PO BID #120 Metformin HCl 1,000 mg PO AC SUPPER #30 Potassium Chloride 20 meq PO DAILY #30 Changed Ferrous Sulfate 325 mg PO BID W/MEALS #60 Discontinued Pantoprazole Sodium [Pantoprazole Sodium] 40 mg PO DAILY - Follow Up or Referral - Forms/Instructions Exam - Constitutional Vitals: Period Temp Pulse Resp BP Sys/Rae Pulse Ox Last 24 Hr 97.6 F-98.9 F 69-90 13-22 82-135/48-105 94-100 Discharge Results Labs on day of discharge: Labs from last 24 hours 11/07/16 11/07/16 11/07/16 11:34 07:28 06:24 WBC 5.0 RBC 3.06 L Hgb 8.7 L Hct 26.2 L MCV 85.6 L MCH 28 MCHC 33.2 RDW 14.3 Plt Count 115 L MPV 9.6 Neut % (Auto) 63.6 Lymph % (Auto) 18.4 L [place] % (Auto) 14.4 H Eos % (Auto) 2.8 Baso % (Auto) 0.4 Neut # (Auto) 3.2 Lymph # (Auto) 0.9 L [place] # (Auto) 0.7 Eos # (Auto) 0.1 Baso # (Auto) 0.0 Immature Gran % 0.4 Nucleated RBC % 0.0 Immature Gran # 0.02 Nucleated RBCs # 0.00 Immature Plt Fraction 0.0 POC Glucose 202 H 122 H 11/07/16 11/06/16 11/06/16 06:24 20:46 18:36 WBC RBC Hgb 8.9 L 9.2 L Hct 26.5 L 28.1 L MCV MCH MCHC RDW Plt Count MPV Neut % (Auto) Lymph % (Auto) [place] % (Auto) Eos % (Auto) Baso % (Auto) Neut # (Auto) Lymph # (Auto) [place] # (Auto) Eos # (Auto) Baso # (Auto) Immature Gran % Nucleated RBC % Immature Gran # Nucleated RBCs # Immature Plt Fraction POC Glucose 271 H 11/06/16 16:22 WBC RBC Hgb Hct MCV MCH MCHC RDW Plt Count MPV Neut % (Auto) Lymph % (Auto) [place] % (Auto) Eos % (Auto) Baso % (Auto) Neut # (Auto) Lymph # (Auto) [place] # (Auto) Eos # (Auto) Baso # (Auto) Immature Gran % Nucleated RBC % Immature Gran # Nucleated RBCs # Immature Plt Fraction POC Glucose 151 H DS: Provider Date of admission: 11/04/16 11:49 Primary care physician: Greer Wynn NP Attending physician on admission: Maurice Sorto III Consults: 11/04/16 12:59 Consult to Physician [CONS] Routine Comment: Consulting Provider: Kevon Gagnon Person Notified: FIDENCIO Date Notified: 11/04/16 Time Notified: 14:45 11/05/16 06:45 Consult to Anesthesiology [CONS] Routine Consulting Provider: Reason for Anesthesiology: Pre-op Clearance Discharging clinician: Poncho MARCUS Expected date of discharge: 11/07/16 <Maurice Sorto III - Last Filed: 11/07/16 12:30> Diagnosis - Discharge Diagnosis (1) Lower GI hemorrhage Status: Acute (2) Type 2 diabetes mellitus Status: Chronic (3) Anemia Status: Chronic (4) Thrombocytopenia Status: Acute Discharge Plan - Discharge Data Condition at Discharge: Stable Discharge Diet: low fat, low cholesterol, low salt diet Activity: resume usual activities as tolerated Hygiene: no restrictions Weight Bearing at Discharge: full weight bearing Driving: no restrictions Contact your physician if you experience:: Bleeding - Forms/Instructions Additional Discharge Instructions: Avoid NSAID medications. CBC at the time of return visit with Dr. Gagnon
[2016-11-07] MEDS ORDERED: SORBITOL 30 ML BOTTLE PO ONE (10:00)
[2016-11-07 15:06] VITALS: BP 96/57
[2016-11-08] MEDS ORDERED: SORBITOL 30 ML BOTTLE PO ONE (10:00)
== END 2016-11-07 15:15 | disposition home or self-care (01) | DRG 919 ==
LOC: EDUNIT# → N.ED 10:19 → N.EDINP 11:49 → N.CC 12:49
PROVIDERS: ADMIT Internal Medicine; ATTEND Internal Medicine

== ENCOUNTER 2016-11-25 13:36 | Inpatient (IN) ==
[2016-11-25 14:20] LABS: Basophils % 0.5 % (0.0-0.8); Eosinophils # 0.4 10*3/uL (0.0-0.87); Hematocrit 24.4 VOL% (35.7-47.0); Hemoglobin 7.6 GM/DL (12.0-16.0); Immature Granulocytes % 0.4 %; Immature Granulocytes Absolute 0.03 #; Lymphocytes # 1.4 10*3/uL (1.4-4.0); Lymphocytes % 16.9 % (21.3-54.2); Mean Corpuscular HGB Conc 31.1 GM/DL (32-36); Mean Corpuscular Hemoglobin 26 PG (27-34); Mean Corpuscular Volume 84.4 FL (87-102); Mean Platelet Volume 9.5 FL (9.6-12.0); Monocytes # 0.8 10*3/uL (0.11-0.8); Monocytes % 10.2 % (1.7-12.7); Neutrophils # 5.5 10*3/uL (1.4-7.4); Platelet Count 204 T/CUMM (130-400); Red Blood Count 2.89 MC/CUMM (3.8-5.5); Red Cell Distribution Width 15.1 % (9.3-17.3); White Blood Count 8.2 T/CUMM (4-12)
[2016-11-25 14:40] LABS: Albumin 3.2 G/DL (3.4-5.0); Bilirubin,Total 0.7 MG/DL (0.2-1.0); Calcium 8.9 MG/DL (8.5-10.1); Osmolality,Calculated 281.7 MOS/KG (273-304); Potassium 3.6 MMOL/L (3.5-5.1); Total Protein 7.2 G/DL (6.4-8.3)
--- NOTE | 2016-11-25 15:02 | Emergency Department Note ---
Segundo Morales Hilary, am scribing for, and in the presence of, Iker aHll MD 14: 54. Isabel Morales James D, MD, personally performed the services described in this documentation, ascribed by Asmita Raymond in my presence, and it is both accurate and complete 502 . Arrival - Arrival Chief Complaint: GI Bleed/Rectal Stated Complaint: blood lose ED Nursing Triage Note: c/o rectal bleeding onset 2 weeks ago. Reports stool is tarry, but takes iron pill. +generalized weakness. +nausea. Denies pain. Reprots was hospitalized approx one month ago for same complaint and given blood transfusions. Mode of Arrival: Wheelchair Limitations: No Limitations Source: Patient, RN Notes Reviewed Time Seen by Provider: 11/25/16 14:47 - History of Present Illness HPI Narrative: Pt is a 66 y/o female presenting to the ED with c/o rectal bleeding which onset 2 weeks ago. Pt states that she has been scoped recently. Reports stool is soft and black, but takes iron pill so attributes it to that. She confirms weakness and nausea but denies abdominal pain or chest pain. She states that she was hospitalized one month ago for same complaint and given blood transfusions and believes she is still losing blood. No other complaints or problems stated in the ED. Onset (ago): week(s) Consistency: constant Severity: mild Severity scale (1-10): 1 Date of Last Menstrual Period: PM Allergies/Adverse Reactions: Allergies Allergy/AdvReac Type Severity Reaction Status Date / Time Sulfa (Sulfonamide Allergy Intermediate HIVES Verified 11/25/16 14:01 Antibiotics) Home Medications: Home Medications Medication Instructions Recorded Confirmed Type Albuterol Neb [Proventil Neb] 2.5 mg RESP TX Q6HR PRN #120 11/07/16 11/25/16 Rx Magnesium Oxide [Magox 400] 800 mg PO BID #120 11/07/16 11/25/16 Rx Metformin HCl 1,000 mg PO AC SUPPER #30 11/07/16 11/25/16 Rx Ferrous Sulfate 325 mg PO TID 11/25/16 11/25/16 History Furosemide 20 mg PO DAILY PRN 11/25/16 11/25/16 History Insulin Degludec [Tresiba 20 unit SUBCUT BEDTIME 11/25/16 11/25/16 History Flextouch U-100] Pantoprazole Tab [Protonix Tab] 40 mg PO AC SUPPER 11/25/16 11/25/16 History Potassium Chloride 20 meq PO DAILY PRN 11/25/16 11/25/16 History Review of System - Review of System 12 point system: reviewed and no additional remarkable complaints except as stated - Review of System Constitutional: Absent: fever Cardiovascular: Absent: chest pain Gastrointestinal: Present: nausea, melena, hematochezia. Absent: abdominal pain , vomiting Medical,Surgical,& Family Hx - Medical History Cardio: History of: Hypertension Endocrine: History of: Diabetes Mellitus (IDDM), Diabetes Mellitus (NIDDM) Gastrointestinal: History of: Diverticulitis/ Diverticulosis, Gastrointestinal Bleed, Hemorrhoids, Polyps - Surgical History Abdominal Surgeries: Surgical HX of: Colonoscopy, EGD - Family History Family History: Reports;: Family Cancer (Melanoma-brother), Family Diabetes, Family Heart Disease (CHF mother) - Social History Smoking Status: Never smoker Frequency of Alcohol Use: None Type of Drug Use: None Exam Physical Examination: GENERAL: This is a well-nourished, well-developed white female in no apparent distress. VITAL SIGNS: Temperature: 98.3 Pulse: 94 Respiratory: 18 Blood Pressure: 100/ 65 O2 Sat: 100 HEENT: Head is normocephalic and atraumatic. Pupils are equally round and reactive to light. Extraocular movement are intact. Oropharynx is benign with moist mucous membranes. NECK: Neck is soft and supple without tenderness. There are no masses. There is no lymphadenopathy. LUNGS: Lungs are clear to auscultation bilaterally. Chest rises symmetrically. There is no chest wall tenderness. CV: Heart is regular rate and rhythm without murmurs, rubs, or gallops. ABDOMEN: Abdomen is soft, non-tender to palpation. There are no abnormal masses palpated. There is no organomegaly. Bowel sounds are present and active. SKIN: Skin is warm and dry. No rash. EXTREMITIES: Patient has full range of motion without tenderness. There is no pedal edema. NEUROLOGIC: Awake, alert, and oriented x4. Cranial nerves II through XII are grossly intact. There are no motorsensory deficits. PSYCHIATRIC: Normal affect. Normal mood. Vital Signs: Vital Signs Temperature 98.3 F 11/25/16 13:52 Pulse Rate 94 H 11/25/16 13:52 Respiratory Rate 18 11/25/16 13:52 Blood Pressure 100/65 11/25/16 13:52 O2 Sat by Pulse Oximetry 100 11/25/16 13:52 Course - Consultations Consultation #1: Discussed with hospitalist. Patient will be admitted to their service. Time: 15:02 Results - Labs CBC & BMP: 11/25/16 14:13 11/25/16 14:13 Lab Results: I have reviewed the patients labs Labs: Laboratory Tests 11/25/16 11/25/16 14:13 14:13 WBC 8.2 RBC 2.89 L Hgb 7.6 L Hct 24.4 L MCV 84.4 L MCH 26 L MCHC 31.1 L Plt Count 204 MPV 9.5 L Lymph % (Auto) 16.9 L Sodium 138 Potassium 3.6 Chloride 101 Carbon Dioxide 22 Anion Gap 18.6 H BUN 21 H Creatinine 1.10 H Glucose 164 H Albumin 3.2 L Globulin 4.0 H Albumin/Globulin Ratio 0.8 L Laboratory Tests 11/25/16 14:04 Absolute Retic 0.2 Percent Retic 5.6 H Retic Hgb Equivalent 21.4 L Disposition Clinical Impression: Anemia, Melena Case discussed with: patient Disposition: Disch To Home/Self Care Condition: Stable
[2016-11-25 15:32] LABS: Folate 20.6 NG/ML (5.4-24.0)
[2016-11-25 15:38] LABS: % Iron Saturation 3.7 % (18-50); Ferritin 8.1 ng/ml (8-252)
--- NOTE | 2016-11-25 15:39 | Hospitalist History & Physical ---
<Liane Arias - Last Filed: 11/25/16 15:27> Assessment and Plan - Time spent with patient Time spent with patient: Greater than 30 minutes (1) Anemia Status: Acute Assessment and plan: 11/25/16 Admit Type and Screen ordered Transfuse 2 units PRBC start IV hydration repeat H&H Repeat a.m. labs Consult GI Will discuss with Dr Mon for further recommendations with care. Current Visit: Yes History of Present Illness Chief complaint: GI bleed History of present illness: Ms. Vela is a 66 year old white female w/PMHx of Gerd, Hypertension, diabetes , diverticulitis, GI Bleed, hemorrhoids, and polyps presented to the ED for 2 week onset of dark Tarry stools, Dizziness, generalized weakness and shortness of breath on exertion. She denies fever, chills, chest pain, or cough. Denies decreased in appetite or weight loss. She reports recent upper and lower scope performed at [facility], unsure of the name of the GI Physician. She was seen 11/07/[address] Gagnon last admission. IN ED: LABS: H&H 7.6 and 24.4. BUN 21 and creatinine 1.10, Glucose 164. She denies smoking, alcohol use or drug use. PCP: Greer Wynn ([place]) After discussion with Dr Hall in the ED and Dr Mon with Hospital Medicine and agreed to admit patient for further evaluation. Home medications will be reviewed and reconciliation to follow. Home Medications Medication Instructions Recorded Confirmed Type Albuterol Neb [Proventil Neb] 2.5 mg RESP TX Q6HR PRN #120 11/07/16 11/25/16 Rx Magnesium Oxide [Magox 400] 800 mg PO BID #120 11/07/16 11/25/16 Rx Metformin HCl 1,000 mg PO AC SUPPER #30 11/07/16 11/25/16 Rx Ferrous Sulfate 325 mg PO TID 11/25/16 11/25/16 History Furosemide 20 mg PO DAILY PRN 11/25/16 11/25/16 History Insulin Degludec [Tresiba 20 unit SUBCUT BEDTIME 11/25/16 11/25/16 History Flextouch U-100] Pantoprazole Tab [Protonix Tab] 40 mg PO AC SUPPER 09/05/17 09/05/17 History Potassium Chloride 20 meq PO DAILY PRN 11/25/16 11/25/16 History Allergies Allergy/AdvReac Type Severity Reaction Status Date / Time Sulfa (Sulfonamide Allergy Intermediate HIVES Verified 11/25/16 14:01 Antibiotics) Medical,Surgical,& Family Hx - Medical History Cardio: History of: Hypertension Endocrine: History of: Diabetes Mellitus (IDDM), Diabetes Mellitus (NIDDM) Gastrointestinal: History of: Diverticulitis/ Diverticulosis, GERD, Gastrointestinal Bleed, Hemorrhoids, Polyps - Surgical History Abdominal Surgeries: Surgical HX of: Colonoscopy, EGD - Family History Family History: Reports;: Family Cancer (Melanoma-brother), Family Diabetes, Family Heart Disease (CHF mother) - Social History Smoking Status: Never smoker Frequency of Alcohol Use: None Type of Drug Use: None Marital Status: Single Lives With:: Alone Functional capacity: independent ambulation 12 point system: reviewed and no additional remarkable complaints except as stated - Constitutional Constitutional: Present: fatigue. Absent: anorexia, chills, weight loss - Cardiovascular Cardiovascular: Present: dyspnea on exertion. Absent: chest pain at rest, chest pain with activity - Respiratory Respiratory: Present: dyspnea on exertion - Gastrointestinal Gastrointestinal: Present: loose stools. Absent: dysphagia Exam - Constitutional Vitals: Period Temp Pulse Resp BP Sys/Rae Pulse Ox Last 24 Hr 98.3 F-98.3 F 94-94 18-18 100-100/65-65 100 General appearance: normal weight, no acute distress - Head Head exam: Present: normal inspection - Eye Eye exam: Present: EOMI Pupils: Present: CARLY - Neck Neck exam: Present: normal inspection. Absent: thyromegaly - Respiratory Respiratory exam: Present: clear to auscultation bilaterally. Absent: rhonchi, stridor, wheezes - Cardiovascular Cardiovascular exam: Present: regular rate and rhythm - GI/Abdominal GI/Abdominal exam: Present: normal bowel sounds, soft. Absent: tenderness, rebound - Extremities Exam Extremities exam: Present: normal inspection, full ROM. Absent: edema - Neurological Exam Neurological exam: Present: alert, oriented X3, CN II-XII intact - Psychiatric Psychiatric exam: Present: normal affect, normal mood. Absent: agitated, anxious - Skin Skin exam: Present: normal color, warm, dry Results - Labs CBC & BMP: 11/25/16 14:13 11/25/16 14:13 Lab Results: I have reviewed the past 24 hour labs - Diagnostic Findings Procedure: Abdominal x-ray: pending (pending results), Chest x-ray: pending ( pending results) <Senthil Mon - Last Filed: 11/25/16 16:19> History of Present Illness History of present illness: Ms. Vela is a 66 year old female with previous history of gastrointestinal hemorrhage and colonic polyps. She presented to her primary care physician today with severe dizziness and Hemoccult positive stools. She was transferred to the hospital where evaluation in the emergency department demonstrated her to have hematocrit and hemoglobin of 24.4 and 7.6 respectively. I agree with the assessment and plans of Liane Arias NP. I have interviewed the patient, examined the patient, and reviewed all the available laboratory tests and x-ray results. The patient will be readmitted to the hospital with recurrent gastrointestinal hemorrhage and severe anemia. She will be transfused with 2 units of packed red blood cells as soon as available. Gastroenterology has been consulted. Exam - Constitutional Vitals: Period Temp Pulse Resp BP Sys/Rae Pulse Ox Last 24 Hr 98.3 F-98.3 F 94-94 18-18 100-100/65-65 100 Results - Labs CBC & BMP: 11/25/16 14:13 11/25/16 14:13
--- NOTE | 2016-11-25 15:50 | XRay Report ---
History: GI bleeding Date: 11/25/2016 Study: Flat and erect abdomen Comparison exam: No previous similar There is no evidence of pneumoperitoneum. The bowel gas pattern is without vanessa bowel obstruction or gross mass lesion. Occasional small nonspecific air-fluid levels noted in large and small bowel on the upright view. There is a moderate amount of retained stool in the normal caliber colon. Phleboliths overlie the pelvis. There is mild lumbar spondylosis. Impression: No acute abdominal process PROCEDURE INTERPRETED AT [facility] DEPARTMENT OF RADIOLOGY Final Report Signed by: Dr. Debbie Hurtado
--- NOTE | 2016-11-25 15:57 | XRay Report ---
History: GI bleeding Date: 11/25/2016 Study: Chest x-ray single view portable Comparison exam: November 04, 2016 The cardiac silhouette is not enlarged. There is no mediastinal mass. The pulmonary vasculature is not engorged. The lungs are well-expanded. There are some scattered emphysematous changes of the lungs. There is no confluent infiltrate to suggest pneumonia. There is no gross pleural effusion. Osseous structures are unchanged. Impression: No acute cardiopulmonary process compared to the previous study. Chronic lung disease as before PROCEDURE INTERPRETED AT [facility] DEPARTMENT OF RADIOLOGY Final Report Signed by: Dr. Debbie Hurtado
[2016-11-25] MEDS ORDERED: SODIUM CHLORIDE 0.9% 250 ML IV PRN (17:19)
[2016-11-25] MEDS ORDERED: FUROSEMIDE 20 MG TABLET PO PRN (17:19)
[2016-11-25] MEDS ORDERED: POTASSIUM CHLORIDE 20 MEQ TABLET PO PRN (17:19)
[2016-11-25] MEDS: SODIUM CHLORIDE 0.9% 1,000 ML IV SCH (18:09)
[2016-11-25 18:15] LABS: Hemoglobin 6.6 GM/DL (12.0-16.0)
[2016-11-25] MEDS: PANTOPRAZOLE 40 MG VIAL IV SCH (20:59)
[2016-11-26 01:30] LABS: Hemoglobin 5.6 GM/DL (12.0-16.0)
[2016-11-26 01:31] LABS: Hematocrit 17.9 VOL% (35.7-47.0)
[2016-11-26] MEDS: SODIUM CHLORIDE 0.9% 1,000 ML IV SCH ×5 (07:51→21:16)
[2016-11-26] MEDS ORDERED: SODIUM CHLORIDE 0.9% 250 ML IV PRN (08:24)
[2016-11-26] MEDS ORDERED: PROPOFOL 200 MG/20 ML VIAL IV ONE (09:00)
[2016-11-26] MEDS ORDERED: LIDOCAINE 2% 5 ML VIAL ONE (09:00)
[2016-11-26] MEDS ORDERED: ETOMIDATE 20 MG/10 ML VIAL IV ONE (09:00)
--- NOTE | 2016-11-26 09:12 | Nuclear Medicine Report ---
Exam: NM GI bleeding Date: 11/26/2016 7:02 AM Indication: GI bleeding anemia Comparison: 11/04/2016 Findings: The patient was given 20 mCi of technetium 99m pertechnetate with 3 cc PYP. Images were obtained for one hour. The liver spleen and aorta and iliac vessels and the heart are demonstrated. Contrast is present in the bladder. No obvious active bleeding diaphysis site present. Impression: 1. Negative GI bleeding series PROCEDURE INTERPRETED AT [facility] DEPARTMENT OF RADIOLOGY Final Report Signed by: Dr. Wade Dhillon
[2016-11-26] MEDS: PANTOPRAZOLE 40 MG VIAL IV SCH ×2 (09:19→21:17)
[2016-11-26 09:55] LABS: Basophils % 0.4 % (0.0-0.8); Eosinophils # 0.3 10*3/uL (0.0-0.87); Eosinophils % 5.3 % (0.00-10.9); Hematocrit 26.5 VOL% (35.7-47.0); Immature Granulocytes % 0.6 %; Immature Granulocytes Absolute 0.03 #; Lymphocytes % 18.7 % (21.3-54.2); Mean Corpuscular HGB Conc 32.5 GM/DL (32-36); Mean Corpuscular Hemoglobin 27 PG (27-34); Mean Corpuscular Volume 83.6 FL (87-102); Mean Platelet Volume 9.3 FL (9.6-12.0); Monocytes # 0.6 10*3/uL (0.11-0.8); Monocytes % 11.2 % (1.7-12.7); Neutrophils # 3.4 10*3/uL (1.4-7.4); Neutrophils % 63.8 % (38.7-73.9); Platelet Count 162 T/CUMM (130-400); Red Blood Count 3.17 MC/CUMM (3.8-5.5); Red Cell Distribution Width 14.6 % (9.3-17.3); White Blood Count 5.3 T/CUMM (4-12)
[2016-11-26 09:58] LABS: Hemoglobin 8.4 GM/DL (12.0-16.0)
[2016-11-26 09:59] LABS: Hemoglobin 8.6 GM/DL (12.0-16.0)
[2016-11-26 10:12] LABS: INR 1.2; PT Patient Result 12.7 SECS
--- NOTE | 2016-11-26 11:31 | Hospitalist Progress Note ---
Assessment and Plan (1) Lower GI hemorrhage Status: Acute Assessment and plan: 1) Lower GIB- Dr Kalin to see today. No bleeding on scan. Her hemoglobin decreased to 5 prior to transfusion. EGD at [place] a month ago was clear and she had several polyps removed at [facility] [place] [place] at that time which was thought to be the source of the bleeding on last admit 2 weeks ago. serial H&H and transfuse as needed. 2)DM- begin accuchecks and SSI. Current Visit: No (2) Diabetes Status: Acute Current Visit: No (3) Acute posthemorrhagic anemia Status: Acute Current Visit: No Hospitalist: Subjective Interval history: Mrs Vela is feeling ok this morning. She can tell her blood counts have increased after transfusion because she has more energy. She has had a bleeding scan this morning which did not show active bleeding. Exam - Constitutional Vitals: Period Temp Pulse Resp BP Sys/Rae Pulse Ox Last 24 Hr 97 F-99.4 F 76-97 16-86 85-143/50-77 95-100 General appearance: no acute distress, over weight - Eye Eye exam: Present: EOMI. Absent: scleral icterus - Respiratory Respiratory exam: Present: clear to auscultation bilaterally - Cardiovascular Cardiovascular exam: Present: regular rate and rhythm - GI/Abdominal GI/Abdominal exam: Present: normal bowel sounds, soft. Absent: tenderness - Extremities Exam Extremities exam: Absent: edema Results - Labs CBC & BMP: 11/26/16 09:41 11/25/16 14:13 Lab Results: I have reviewed the past 24 hour labs
[2016-11-26] MEDS ORDERED: GLUCAGON 1 MG VIAL IM PRN (11:33)
[2016-11-26] MEDS ORDERED: DEXTROSE 50% 25 GM/50 ML SYRINGE IV PRN (11:33)
[2016-11-26] MEDS: INSULIN LISPRO 100 UNIT/ML SUBCUT SCH ×2 (17:42→22:31)
[2016-11-26 18:14] LABS: Hematocrit 24.1 VOL% (35.7-47.0); Hemoglobin 7.8 GM/DL (12.0-16.0)
--- NOTE | 2016-11-26 19:31 | Gastrointestinal Consult Note ---
Assessment and Plan (1) Anemia Status: Chronic Assessment and plan: This patient has previous upper endoscopy done in September 05, 2013, with hyperplastic polyp and some mild gastritis seen at that time but no bleeding source in addition to a colonoscopy that was done on 10/14/16 which demonstrated 4 polyps all of which were taken off by hot biopsy and may have induced some post polypectomy bleeding. There may have been a missed lesion such as AVMs that might also been of some significance. Given the fact this was the most recent study that was done for ongoing bleeding issues we will go ahead and repeat the colonoscopy first and if this proves to be negative we will repeat the upper endoscopy again. Only 5% of bleeding usually occurs in the small bowel but if these are both negative will arrange for capsule endoscopy likely to be done as an outpatient provided she is stable. We may replace the upper endoscopy with small bowel enteroscopy to see if we can push further into the upper GI tract looking for AVMs if nothing is seen on colonoscopy. A tagged red blood cell scan has been noted to be negative this admission--this is reassuring that there is no active bleeding going on right now. The patient stools are not particularly dark on my exam today, these appear to be brown, but they are grossly guaiac positive. Current Visit: No (2) Guaiac positive stools Status: Acute Assessment and plan: This implies a ongoing loss from the GI tract--the patient has remained on pantoprazole as an outpatient and is not taking any further anti-inflammatory agents that might be irritating her stomach. Again I believe that given the proximity to the colonoscopy that the lower GI tract remains the most likely source for potential bleeding. If we fail to find anything on colonoscopy tomorrow we will definitely repeat upper endoscopy versus push enteroscopy on Thursday morning and potential capsule endoscopy to follow if that too shows no evidence of a GI bleeding source. Risks and benefits of the above procedure were discussed with the patient include but are not limited to: Bleeding, infection, perforation, cardiac and pulmonary compromise. Current Visit: Yes (3) Personal history of colonic polyps Status: Acute Assessment and plan: This patient had 2 hyperplastic polyps and 2 tubular adenomas removed during her most recent colonoscopy. Further recommendations as noted above post colonoscopy. If further polyps are discovered we may take these off during the exam tomorrow. If upper endoscopy is required we will definitely take biopsies to rule out celiac sprue as well. Current Visit: No History of Present Illness Chief complaint: Decrease in hematocrit to 17% post recent EGD and colo at [facility]. History of present illness: Ms. Vela is a 66 year old female who was last seen by me on 11/04/16 on her last admission for basically the same problem, dark stools while taking iron with a significant decrease in hematocrit. Patient's hematocrit had been this high as 20.1 during her last admission but upon discharge she was noted to drop down to 26.2%. The patient felt weak and dizzy and brought herself back to the emergency room 11/25/16 and was noted to drop her hematocrit down to 17.9% and now has received a total of 2 units packed red blood cells. A bleeding scan was done earlier today and this was felt to be negative for acute GI bleeding. Patient had undergone previous lower endoscopy by Dr. Galeana at [place] with an acute GI bleed that occurred on 10/14/16--at that time a total of 4 polyps were removed--and we presume that this might have led to the post polypectomy bleed for which she was seen on her last admission (presumed). The patient had previously had an upper endoscopy done on 09/05/13 which showed a hyperplastic gastric polyp and mild diffuse gastritis but no evidence of malignancy and no Helicobacter pylori. She was treated for dysphagia but again this has improved at this point. We were concerned about a potential diverticular bleed on her last visit as well. At this point her his stools are brown but grossly guaiac positive. Just because of previous findings of her last admission 3 weeks ago, I still think that it is likely that she has a colonoscopic source, and so we will arrange for repeat colonoscopy to occur tomorrow after the patient is prepped today. If this fails to show a bleeding source will likely proceed with upper endoscopy repeat versus small bowel enteroscopy the following day to see if a further source can be discovered. She is not having any significant abdominal pain. She is able to eat which she would like. She avoids NSAIDs after her last visit. She is continued to take ferrous sulfate, likely the cause for her dark stools. There is no family history of colorectal cancer or polyps. Because of the way transfusion parameters have been written she is due to get another 2 units of blood tonight. Home Medications Medication Instructions Recorded Confirmed Type Albuterol Neb [Proventil Neb] 2.5 mg RESP TX Q6HR PRN #120 11/07/16 11/25/16 Rx Magnesium Oxide [Magox 400] 800 mg PO BID #120 11/07/16 11/25/16 Rx Metformin HCl 1,000 mg PO AC SUPPER #30 11/07/16 11/25/16 Rx Ferrous Sulfate 325 mg PO TID 11/25/16 11/25/16 History Furosemide 20 mg PO DAILY PRN 11/25/16 11/25/16 History Insulin Degludec [Tresiba 20 unit SUBCUT BEDTIME 11/25/16 11/25/16 History Flextouch U-100] Pantoprazole Tab [Protonix Tab] 40 mg PO AC SUPPER 11/25/16 11/25/16 History Potassium Chloride 20 meq PO DAILY PRN 11/25/16 11/25/16 History diphenhydrAMINE CAP [Benadryl Cap] 25 mg PO DAILY 11/25/16 11/25/16 History Allergies Allergy/AdvReac Type Severity Reaction Status Date / Time Sulfa (Sulfonamide Allergy Intermediate HIVES Verified 11/25/16 14:01 Antibiotics) Medical,Surgical,& Family Hx - Medical History Cardio: History of: Hypertension Endocrine: History of: Diabetes Mellitus (IDDM), Diabetes Mellitus (NIDDM) Gastrointestinal: History of: Diverticulitis/ Diverticulosis, GERD, Gastrointestinal Bleed, Hemorrhoids, Polyps Hematology: History of: Anemia - Surgical History Abdominal Surgeries: Surgical HX of: Colonoscopy, EGD Reproductive Surgeries: Surgical HX of;: Tubal Ligation - Family History Family History: Reports;: Family Cancer (Melanoma-brother), Family Diabetes, Family Heart Disease (CHF mother, sister-stents), Family Stroke (brother) - Social History Smoking Status: Never smoker Frequency of Alcohol Use: None Type of Drug Use: None Review of systems: Constitutional: Denies fever, chills, nausea, and vomiting Eyes: Denies dry eyes, and scleral icterus HENT: Occasional headaches Cardiovascular: Denies acute chest pain and claudication Respiratory: Denies shortness of breath, wheezing, and difficulty breathing, denies cough Gastrointestinal: As noted in the HPI Genitourinary: Denies dysuria and hematuria Neurologic: Denies vision loss, and loss of sensation Musculoskeletal: Patient does have some mild joint swelling, joint stiffness , and muscular weakness Psychiatric: Denies depression and randall symptoms Heme-Lymph: Denies easy bruising, lymph node enlargement or tenderness, night sweats, excessive bleeding Allergies-immunologic: Denies pruritus and rhinorrhea Exam - Constitutional Vitals: Period Temp Pulse Resp BP Sys/Rae Pulse Ox Last 24 Hr 97 F-99.4 F 74-95 16-86 85-143/50-77 95-98 Exam: Constitutional: Well-developed, well-nourished, alert, and in no acute distress Head and face: Head: Normocephalic atraumatic Eyes: Conjunctiva without injection, no gross scleral icterus, pupils equal and round bilaterally Ears: Intact to conversation in both ears Nose: External appearance is normal, nares patent Mouth: Oral mucous membranes moist without erythema dentition noted to be without erosion Neck: Normal appearance, no masses or tenderness, trachea midline Thyroid: Gland midline and appropriate size for age Respiratory: Normal respiratory effort, clear to auscultation without wheezes, rhonchi or rales Cardiovascular: Regular rate and rhythm, normal S1, S2, the exam is without rubs, murmurs or gallops. Gastrointestinal: Nontender to palpation, normal active bowel sounds, tone normal without rigidity or guarding, no masses present, no hepatomegaly, no spleen tip felt. The patient does have small internal hemorrhoids circumferentially, good tone stool is present brown but grossly guaiac positive Lymphatic: Neck without adenopathy, axilla without lymphadenopathy present Musculoskeletal: Right and left lower extremities without evidence of edema Skin and subcutaneous tissue: No rashes or ulcerations noted, the patient does have some hyperpigmentation in the pretibial regions bilaterally consistent with venous stasis but normal skin turgor, digits and nails without clubbing/cyanosis/deformities. Neurologic: The patient is grossly oriented to person place and time, cranial nerves show tongue movements are normal with normal tongue extrusion midline, light touch sensation is intact. Psychiatric: No hallucinations or delusions are present, does not appear depressed Results - Labs CBC & BMP: 11/26/16 17:59 11/25/16 14:13
[2016-11-26] MEDS ORDERED: POLYETHYLENE GLYCOL POWDER 255 GM BOTTLE PO ONE (20:00)
[2016-11-26] MEDS ORDERED: MAGNESIUM CITRATE 300 ML BOTTLE PO ONE (21:00)
[2016-11-26] MEDS: BISACODYL 5 MG TABLET PO SCH (21:17)
[2016-11-27] MEDS: BISACODYL 5 MG TABLET PO SCH ×2 (03:22→12:18)
[2016-11-27 04:20] LABS: Hematocrit 31.4 VOL% (35.7-47.0); Hemoglobin 10.2 GM/DL (12.0-16.0)
[2016-11-27 04:46] LABS: INR 1.2; PT Patient Result 12.5 SECS
[2016-11-27] MEDS: INSULIN LISPRO 100 UNIT/ML SUBCUT SCH ×4 (07:37→20:56)
--- NOTE | 2016-11-27 08:41 | Operative Note ---
Date of procedure: 11/27/16 Pre-op diagnosis: Abnormal blood loss, guaiac positive stools, prior colonoscopy in September Post-op diagnosis: other (No bleeding source seen. 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 Small internal hemorrhoids were noted incidentally as well as moderate pandiverticulosis.) Procedure: PROCEDURE: Colonoscopy with cold biopsy for pathology and hot biopsy polypectomy REFERRING PHYSICIAN: Senthil Mno MD INDICATIONS: Drop in hematocrit to 17.9% now status post transfusion up to 31 %. No change from GI consultation yesterday the prior H&P was reviewed and interrim changes are as noted: ENDOSCOPIST: Kevon Gagnon MD ENDOSCOPE: [employer] Video 100 System colonoscope COLON PREPARATION: 238 gm of PEG containing laxative and 1.9 liters of gatoraid/sports drink and dulcolax 15 mg q8 hours x 3 ASA CLASS: 3 EXAM: CV: regular rate and rhythm Respiratory: Clear without wheezes Abdominal: active bowel sounds Rectal: Good tone, no fissures or fistulas MEDICATION: Per nursing anesthesia protocol, see their notes PROCEDURE: After discussion of the potential risks and benefits of colonoscopy, the informed consent was obtained, from patient or health care surrogate. The patient was then placed in the left lateral decubitus position where sedation was achieved as noted above. Rectal examination was followed by insertion of the colonoscope. The colonoscope was passed under direct visualization to the cecum. Advancement was facilitated by insertion/withdrawl techniques, abdominal pressure and patient positioning. Once the cecal pole was reached, slow withdrawal was performed with the findings as noted below. The patient tolerated the procedure well and without complication. QUALITY OF PREP: Excellent WITHDRAWL TIME: 6 minutes 43 seconds BIOPSIES: IC valve biopsy, ascending polyp hot biopsy PHOTOGRAPHS: Obtained FINDINGS: The musoca appeared normal in the following regions: rectum, sigmoid colon, descending colon, splenic flexure, transverse colon, hepatic flexure, ascending colon and cecum. Position within the cecum was confirmed by ileocecal valve, appendiceal oriface, and the convergence of folds (crows foot) . No mass or AVM was noted throughout the colon. Moderate foreman-diverticulosis noted. 2 very small polyps were noted in the ascending colon at 5 and 6 mm removed by hot biopsy. The ileocecal valve appeared lipomatous and with some redundancy and colitis as a result of hypermobility likely, biopsies were obtained to rule out mass, but fatty tissue noted on removal of surface mucosa. Intubation of the TI was achieved x 5 cm with normal appearence--no evidence of Crohn's disease. No evidence of bleeding throughout any portion of the colon prior to the biopsies. Small internal hemorrhoids noted on retroflex with hypertrophied dentate papilla IMPRESSION: No bleeding source seen. 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 Small internal hemorrhoids were noted incidentally as well as moderate pandiverticulosis. RECOMMENDATIONS: High fiber diet Repeat colonosocopy will be in 5 years due to prior history of adenomatous polyps. Citrucel 1 tablespoon in 12 oz juice BID: 1 bottle: :11 Follow up by phone for biopsy results in 1-2 weeks by phone Is no significant bleeding source was seen we will proceed with upper endoscopy tomorrow morning. We will write for the patient to get an interim diabetic diet. Kevon Gagnon MD COPY TO: Senthil Mon MD Anesthesia: MAC Surgeon / Physician: Kevon Gagnon Estimated blood loss: minimal Specimens: other (Ileocecal valve biopsies, ascending polyps) Condition: stable Disposition: post procedure unit (G[facility]I. Suite) Results - Labs CBC & BMP: 11/27/16 03:54 11/25/16 14:13 Discharge Plan - Discharge Medications No Action Magnesium Oxide [Magox 400] 800 mg PO BID #120 Metformin HCl 1,000 mg PO AC SUPPER #30 Furosemide 20 mg PO DAILY PRN PRN Reason: Edema Potassium Chloride 20 meq PO DAILY PRN PRN Reason: WITH K DEPLETING DIURETIC Pantoprazole Tab [Protonix Tab] 40 mg PO AC SUPPER Albuterol Neb [Proventil Neb] 2.5 mg RESP TX Q6HR PRN #120 PRN Reason: Shortness Of Breath/Wheezing Ferrous Sulfate 325 mg PO TID Insulin Degludec [Tresiba Flextouch U-100] 20 unit SUBCUT BEDTIME diphenhydrAMINE CAP [Benadryl Cap] 25 mg PO DAILY - Follow Up or Referral - Forms/Instructions
--- NOTE | 2016-11-27 09:04 | Gastrointestinal Progress Note ---
Assessment and Plan (1) Anemia Status: Chronic Assessment and plan: This patient has previous upper endoscopy done in September 05, 2013, with hyperplastic polyp and some mild gastritis seen at that time but no bleeding source in addition to a colonoscopy that was done on 10/14/16 which demonstrated 4 polyps all of which were taken off by hot biopsy and may have induced some post polypectomy bleeding. There may have been a missed lesion such as AVMs that might also been of some significance. Given the fact this was the most recent study that was done for ongoing bleeding issues we will go ahead and repeat the colonoscopy first and if this proves to be negative we will repeat the upper endoscopy again. Only 5% of bleeding usually occurs in the small bowel but if these are both negative will arrange for capsule endoscopy likely to be done as an outpatient provided she is stable. We may replace the upper endoscopy with small bowel enteroscopy to see if we can push further into the upper GI tract looking for AVMs if nothing is seen on colonoscopy. A tagged red blood cell scan has been noted to be negative this admission--this is reassuring that there is no active bleeding going on right now. The patient stools are not particularly dark on my exam today, these appear to be brown, but they are grossly guaiac positive. 11/27/16--colonoscopy report as per the following: No bleeding source seen. 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 Small internal hemorrhoids were noted incidentally as well as moderate pandiverticulosis. Will arrange for an upper endoscopy for tomorrow morning to find potential secondary source of bleeding. If this fails to see a source we might consider capsule endoscopy if this admission or as an outpatient. Current Visit: No (2) Guaiac positive stools Status: Acute Assessment and plan: This implies a ongoing loss from the GI tract--the patient has remained on pantoprazole as an outpatient and is not taking any further anti-inflammatory agents that might be irritating her stomach. Again I believe that given the proximity to the colonoscopy that the lower GI tract remains the most likely source for potential bleeding. If we fail to find anything on colonoscopy tomorrow we will definitely repeat upper endoscopy versus push enteroscopy on Thursday morning and potential capsule endoscopy to follow if that too shows no evidence of a GI bleeding source. Risks and benefits of the above procedure were discussed with the patient include but are not limited to: Bleeding, infection, perforation, cardiac and pulmonary compromise. 11/27/16--as noted above, continue Protonix. Current Visit: Yes (3) Personal history of colonic polyps Status: Acute Assessment and plan: This patient had 2 hyperplastic polyps and 2 tubular adenomas removed during her most recent colonoscopy. Further recommendations as noted above post colonoscopy. If further polyps are discovered we may take these off during the exam tomorrow. If upper endoscopy is required we will definitely take biopsies to rule out celiac sprue as well. 11/27/16--repeat colonoscopy in 5 years as this patient has a prior history of adenomas but no significant polyps removed today (2 small polyps removed) await biopsies of ileocecal valve to confirm this was lipomatous. Current Visit: No Gastroenterology - PN: Subj Interval history: No new complaints Exam (Progress Note) - Constitutional Vitals: Period Temp Pulse Resp BP Sys/Rae Pulse Ox Last 24 Hr 96.9 F-99.1 F 72-94 16-20 97-160/57-76 94-97 General appearance: no acute distress - Head Head exam: Present: normocephalic - Eye Eye exam: Present: EOMI Pupils: Present: CARLY - Respiratory Respiratory exam: Present: clear to auscultation bilaterally - Cardiovascular Cardiovascular exam: Present: regular rate and rhythm - GI/Abdominal GI/Abdominal exam: Present: normal bowel sounds, soft. Absent: distended, tenderness, rebound - Extremities Exam Extremities exam: Absent: edema - Neurological Exam Neurological exam: Present: alert, oriented X3 - Psychiatric Psychiatric exam: Present: normal affect, normal mood - Skin Skin exam: Present: warm Results - Labs CBC & BMP: 11/27/16 03:54 11/25/16 14:13
--- NOTE | 2016-11-27 09:06 | Anesthesia Post-Op ---
Anesthesia Post OP - Post Ansesthetic Evaluation Patient seen in post op: Yes Resp: within normal limits CV: within normal limits Mental: within normal limits Temp: within normal limits Bxwa-Nf-Rtbvvovft: within normal limits Nausea and Vomiting: within normal limits Pain: within normal limits
[2016-11-27] MEDS: ACETAMINOPHEN 325 MG TABLET PO PRN ×2 (10:30→20:47)
[2016-11-27] MEDS ORDERED: PHENYLEPHRINE 1 MG/10 ML SYRINGE IV ONE (11:00)
[2016-11-27] MEDS ORDERED: LIDOCAINE 100 MG/5 ML SYRINGE ONE (11:00)
[2016-11-27] MEDS ORDERED: PROPOFOL 200 MG/20 ML VIAL IV ONE (11:00)
[2016-11-27 11:09] LABS: Hematocrit 32.7 VOL% (35.7-47.0); Hemoglobin 10.5 GM/DL (12.0-16.0)
--- NOTE | 2016-11-27 11:31 | Hospitalist Progress Note ---
Assessment and Plan (1) Lower GI hemorrhage Status: Acute Assessment and plan: 1) GIB- Dr Gagnon to do EGD tomorrow since today's cscope did not show source of bleeding. No bleeding on scan. H&H stable after initial transfusion on admission. serial H&H and transfuse as needed. 2)DM-accuchecks and SSI. 3)old rotator cuff injury with pain- tylenol as she takes at home. Current Visit: No (2) Diabetes Status: Acute Current Visit: No (3) Acute posthemorrhagic anemia Status: Acute Current Visit: No Hospitalist: Subjective Interval history: Mrs pearson is eating a late breakfast after Cscope when I see her. She is feeling good and denies pain or other complaint. She will have EGD tomorrow morning since cscope did not show source of bleeding (2 more polyps removed). Exam - Constitutional Vitals: Period Temp Pulse Resp BP Sys/Rae Pulse Ox Last 24 Hr 96.9 F-99.1 F 72-94 16-20 89-160/50-76 94-100 General appearance: no acute distress, over weight - Eye Eye exam: Present: EOMI. Absent: scleral icterus - Respiratory Respiratory exam: Present: clear to auscultation bilaterally - Cardiovascular Cardiovascular exam: Present: regular rate and rhythm - GI/Abdominal GI/Abdominal exam: Present: normal bowel sounds, soft. Absent: tenderness - Extremities Exam Extremities exam: Absent: edema Results - Labs CBC & BMP: 11/27/16 10:45 11/25/16 14:13 Lab Results: I have reviewed the past 24 hour labs
[2016-11-27] MEDS: PANTOPRAZOLE 40 MG VIAL IV SCH ×2 (12:28→20:48)
[2016-11-27] MEDS: SODIUM CHLORIDE 0.9% 1,000 ML IV SCH ×2 (16:35→20:52)
[2016-11-28 02:49] LABS: Hematocrit 26.6 VOL% (35.7-47.0); Hemoglobin 8.5 GM/DL (12.0-16.0)
[2016-11-28 03:33] LABS: INR 1.2; PT Patient Result 13.2 SECS
[2016-11-28] MEDS: SODIUM CHLORIDE 0.9% 1,000 ML IV SCH ×3 (04:45→20:33)
[2016-11-28] MEDS: INSULIN LISPRO 100 UNIT/ML SUBCUT SCH ×4 (07:29→23:46)
[2016-11-28] MEDS ORDERED: SODIUM CHLORIDE 0.9% 250 ML IV PRN (10:24)
--- NOTE | 2016-11-28 10:24 | Operative Note ---
Date of procedure: 11/28/16 Pre-op diagnosis: Anemia with dark stools and drop in hematocrit to 17.9% Post-op diagnosis: other (The patient has 2 columns of grade 1 varices not thought to be the source the patient's bleeding. In the stomach the patient did have what appeared to be a Dieulafoy's lesion with possible visible vessel tip that was cauterized using BiCAP cautery 4 applications of 15 W. This was thought to be the source the patient's bleeding, mild gastritis with a few erosions near the pyloric channel were also noted and biopsies were taken here as well.) Procedure: PROCEDURE: Esophagogastroduodenoscopy (EGD) with cold biopsy for pathology and bipolar cautery for hemostasis REFERRING PHYSICIAN: Senthil Mon MD INDICATIONS: Anemia with hematocrit down to 17.9 now up to 32% status post 4 unit transfusion drifting back down again to 26% today the prior H&P was reviewed and interrim changes are as noted: No change from GI consultation 2 days ago ENDOSCOPIST: Kevon Gagnon MD ENDOSCOPE: [employer] Video 100 System upper endoscope ASA CLASS: 3 EXAM: CV: regular rate and rhythm respiratory: Clear without wheezes abdominal: active bowel sounds MEDICATION: Per nursing anesthesia protocol, see their notes PROCEDURE: After discussion of the potential risks and benefits of upper endoscopy, the informed consent was obtained. The patient was then placed in the left lateral decubitus position where sedation was achieved as noted above. Esophageal intubation was performed without difficulty, and the endoscope was advanced through the esophagus, stomach and duodenum. A slow withdrawal was then performed with retroflexion in the stomach for careful inspection of the incisura angularis, fundus and cardia. The scope was then returned to a neutral position and withdrawn through the esophagus. The patient tolerated the procedure well and without complication. BIOPSIES: Gastric antrum/body, duodenal biopsies PHOTOGRAPHS: Obtained FINDINGS: Hypopharynx and Larynx: Normal Esohagoscopy Upper and middle thirds: 2 columns of grade 1 varices Lower third 2 columns of grade 1 varices, these were not bleeding and there were no red bel signs. I did not band these. Esophogastric junctions: No gross evidence of esophagitis, Caldwell's, or stricturing Gastroscopy: Cardia/Fundus: Scant amount of clear fluid noted here Body: This patient appeared to have look like a Dieulafoy's lesion in the body of the stomach, this had the appearance of recent bleeding, this was cauterized using 4 applications of 15 W BiCAP cautery with a good eschar noted at the end of the case. Several small polyps were removed, biopsies obtained for examination of gastritis. Antrum and pylorus some slight erosions especially down near the pyloric channel with biopsies obtained Duodenoscopy: Bulb normal-appearing, biopsied for sprue Second and third portions: Normal-appearing, biopsied for sprue IMPRESSION: The patient has 2 columns of grade 1 varices not thought to be the source the patient's bleeding. In the stomach the patient did have what appeared to be a Dieulafoy's lesion with possible visible vessel tip that was cauterized using BiCAP cautery 4 applications of 15 W. This was thought to be the source the patient's bleeding, mild gastritis with a few erosions near the pyloric channel were also noted and biopsies were taken here as well. RECOMMENDATIONS: Follow up for biopsy results in 1-2 weeks by phone [phone] Continue anti-gastroesophageal reflux measures (avoid carbonated and acidic beverages, avoid eating within 2 hours of bedtime, avoid tight fitting clothing , and elevate the front bed posts 6 inches prior to sleeping. I would like to have this patient transfused another 2 units packed red blood cells as a cushion against further bleeding. If patient's hematocrit drops again tomorrow we will need to get a capsule endoscopy as our next test of choice. Kevon Gagnon MD COPY TO: Senthil Mon MD Anesthesia: MAC Surgeon / Physician: Kevon Gagnon Estimated blood loss: minimal Specimens: other (Gastric antrum/body, duodenum) Condition: stable Disposition: post procedure unit (G[facility]I. Suite) Results - Labs CBC & BMP: 11/28/16 02:11 11/25/16 14:13 Discharge Plan - Discharge Medications No Action Magnesium Oxide [Magox 400] 800 mg PO BID #120 Metformin HCl 1,000 mg PO AC SUPPER #30 Furosemide 20 mg PO DAILY PRN PRN Reason: Edema Potassium Chloride 20 meq PO DAILY PRN PRN Reason: WITH K DEPLETING DIURETIC Pantoprazole Tab [Protonix Tab] 40 mg PO AC SUPPER Albuterol Neb [Proventil Neb] 2.5 mg RESP TX Q6HR PRN #120 PRN Reason: Shortness Of Breath/Wheezing Ferrous Sulfate 325 mg PO TID Insulin Degludec [Tresiba Flextouch U-100] 20 unit SUBCUT BEDTIME diphenhydrAMINE CAP [Benadryl Cap] 25 mg PO DAILY - Follow Up or Referral - Forms/Instructions
--- NOTE | 2016-11-28 10:28 | Gastrointestinal Progress Note ---
Assessment and Plan (1) Anemia Status: Chronic Assessment and plan: This patient has previous upper endoscopy done in September 05, 2013, with hyperplastic polyp and some mild gastritis seen at that time but no bleeding source in addition to a colonoscopy that was done on 10/14/16 which demonstrated 4 polyps all of which were taken off by hot biopsy and may have induced some post polypectomy bleeding. There may have been a missed lesion such as AVMs that might also been of some significance. Given the fact this was the most recent study that was done for ongoing bleeding issues we will go ahead and repeat the colonoscopy first and if this proves to be negative we will repeat the upper endoscopy again. Only 5% of bleeding usually occurs in the small bowel but if these are both negative will arrange for capsule endoscopy likely to be done as an outpatient provided she is stable. We may replace the upper endoscopy with small bowel enteroscopy to see if we can push further into the upper GI tract looking for AVMs if nothing is seen on colonoscopy. A tagged red blood cell scan has been noted to be negative this admission--this is reassuring that there is no active bleeding going on right now. The patient stools are not particularly dark on my exam today, these appear to be brown, but they are grossly guaiac positive. 11/27/16--colonoscopy report as per the following: No bleeding source seen. 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 Small internal hemorrhoids were noted incidentally as well as moderate pandiverticulosis. Will arrange for an upper endoscopy for tomorrow morning to find potential secondary source of bleeding. If this fails to see a source we might consider capsule endoscopy if this admission or as an outpatient. 11/28/16--upper endoscopy did demonstrate the following: The patient has 2 columns of grade 1 varices not thought to be the source the patient's bleeding. In the stomach the patient did have what appeared to be a Dieulafoy's lesion with possible visible vessel tip that was cauterized using BiCAP cautery 4 applications of 15 W. This was thought to be the source the patient's bleeding , mild gastritis with a few erosions near the pyloric channel were also noted and biopsies were taken here as well. Because of her drop in hematocrit to 26% I am going to give her another 2 unit blood transfusion and watch and see how she does for 1 more day before discharging her home potentially tomorrow morning. Current Visit: No (2) Guaiac positive stools Status: Acute Assessment and plan: This implies a ongoing loss from the GI tract--the patient has remained on pantoprazole as an outpatient and is not taking any further anti-inflammatory agents that might be irritating her stomach. Again I believe that given the proximity to the colonoscopy that the lower GI tract remains the most likely source for potential bleeding. If we fail to find anything on colonoscopy tomorrow we will definitely repeat upper endoscopy versus push enteroscopy on Thursday morning and potential capsule endoscopy to follow if that too shows no evidence of a GI bleeding source. Risks and benefits of the above procedure were discussed with the patient include but are not limited to: Bleeding, infection, perforation, cardiac and pulmonary compromise. 11/27/16--as noted above, continue Protonix. 11/28/16--The bleeding appear to be coming from a Dieulafoy's lesion in the stomach that is now been cauterized. Continue Protonix Current Visit: Yes (3) Personal history of colonic polyps Status: Acute Assessment and plan: This patient had 2 hyperplastic polyps and 2 tubular adenomas removed during her most recent colonoscopy. Further recommendations as noted above post colonoscopy. If further polyps are discovered we may take these off during the exam tomorrow. If upper endoscopy is required we will definitely take biopsies to rule out celiac sprue as well. 11/27/16--repeat colonoscopy in 5 years as this patient has a prior history of adenomas but no significant polyps removed today (2 small polyps removed) await biopsies of ileocecal valve to confirm this was lipomatous. 11/28/16--await pathology. Potential discharge tomorrow if patient is stable Current Visit: No Gastroenterology - PN: Subj Interval history: Patient is doing well although her hematocrit dropped from 32% down to 26% indicating further GI bleeding over the evening time. Exam (Progress Note) - Constitutional Vitals: Period Temp Pulse Resp BP Sys/Rae Pulse Ox Last 24 Hr 96.1 F-98.9 F 64-85 16-20 102-132/53-065 94-100 General appearance: no acute distress - Head Head exam: Present: normocephalic - Eye Eye exam: Present: EOMI - GI/Abdominal GI/Abdominal exam: Present: normal bowel sounds, soft. Absent: distended, guarding, tenderness, rebound - Neurological Exam Neurological exam: Present: alert, oriented X3 - Psychiatric Psychiatric exam: Present: normal affect, normal mood - Skin Skin exam: Present: warm Results - Labs CBC & BMP: 11/28/16 02:11 11/25/16 14:13
--- NOTE | 2016-11-28 10:31 | Anesthesia Post-Op ---
Anesthesia Post OP - Post Ansesthetic Evaluation Patient seen in post op: Yes Resp: within normal limits CV: within normal limits Mental: within normal limits Temp: within normal limits Toat-Gv-Tytqbtitg: within normal limits Nausea and Vomiting: within normal limits Pain: within normal limits
--- NOTE | 2016-11-28 11:23 | Pathology Report from [facility] ---
[facility] ACCESSION # : [id number] PATIENT NAME : Zakiya Vela ORDERING DR : Kevon Gagnon MD CLINICAL HX: GI bleed POST-OP DX: Same SPECIMEN INFO: #1 BX lipoma @ ileocecal valve #2 Polyp ascending GROSS DESCRIPTION: #1 Received in formalin labeled with the patients name ZAKIYA VELA and #1 consists of a 0.8 x 0.3 cm aggregate of alvarado tissue. Submitted in cassette #1.#2 Received in formalin labeled with the patients name ZAKIYA VELA and #2 consists of two alvarado tissue fragments measuring 0.4 x 0.2 cm collectively. Submitted in cassette #2. DIAGNOSIS FOR ZAKIYA VELA: #1 ILEOCECAL VALVE, BIOPSY: Superficial neutrophilic debris consistent with resolving acute self-limited colitis. No evidence of lipoma or true polyp formation.#2 ASCENDING COLON, BIOPSY: Hyperplastic mucosal changes. No true polyp formation identified. COLLECTED DATE: 11/27/2016 [facility] REPORT DATE: 11/28/2016 ELECTRONICALLY SIGNED BY: Zuleika Dorsey III, M.D. 11/28/2016 - 10:06:42 LISA
[2016-11-28 11:48] LABS: Hematocrit 29.9 VOL% (35.7-47.0); Hemoglobin 9.6 GM/DL (12.0-16.0)
[2016-11-28] MEDS: PANTOPRAZOLE 40 MG VIAL IV SCH ×2 (13:42→20:30)
[2016-11-28] MEDS: ACETAMINOPHEN 325 MG TABLET PO PRN (13:45)
--- NOTE | 2016-11-28 14:13 | Hospitalist Progress Note ---
Assessment and Plan (1) Lower GI hemorrhage Status: Acute Assessment and plan: 1)GIB- Dr Gagnon cauterized a visible vessel of a Dieulafoy's lesion. Tranfuse 2 U PRBC and monitor H&H. 2)DM-accuchecks and SSI. glucose controlled. 3)old rotator cuff injury with pain- tylenol as she takes at home. no complaints today. Current Visit: No (2) Diabetes Status: Acute Current Visit: No (3) Acute posthemorrhagic anemia Status: Acute Current Visit: No Hospitalist: Subjective Interval history: Mrs Vela is doing well, preparing to take a nap. At EGD today Dr Gagnon cauterized a Dieulafoy's lesion with visible vessel thought to be the source of bleeding. We will monitor her H&H tonight after 2 more units of blood. Exam - Constitutional Vitals: Period Temp Pulse Resp BP Sys/Rae Pulse Ox Last 24 Hr 96.1 F-98.9 F 62-80 15-20 102-147/53-065 94-100 General appearance: no acute distress, over weight - Eye Eye exam: Present: EOMI. Absent: scleral icterus - Respiratory Respiratory exam: Present: clear to auscultation bilaterally - Cardiovascular Cardiovascular exam: Present: regular rate and rhythm - GI/Abdominal GI/Abdominal exam: Present: normal bowel sounds, soft. Absent: tenderness - Extremities Exam Extremities exam: Absent: edema Results - Labs CBC & BMP: 11/28/16 11:30 11/25/16 14:13 Lab Results: I have reviewed the past 24 hour labs
[2016-11-28 16:29] LABS: Apearance,Urine CLEAR (Clear); Bacteria,Urine Occasional /HPF (Few); Bilirubin,Urine Negative (Negative); Blood, Urine Negative (Negative); Glucose,Urine (UA) Negative (Negative); Ketones,Urine Negative (Negative); Mucus,Urine Occasional /LPF (Occasional); Nitrite,Urine Negative (Negative); Protein,Urine Negative; RBC,Urine <1 /HPF (0-4); Squamous Epithelial Cell,Urine Occasional /HPF (0-10); Urine Color Straw (Yellow); Urine Specific Gravity 1.006 (1.001-1.035); Urine Urobilinogen < 2.0 EU/DL (0.2-1.0); WBC,Urine 5 /HPF (0-6)
[2016-11-29 06:40] LABS: Osmolality,Calculated 283.1 MOS/KG (273-304); Potassium 3.9 MMOL/L (3.5-5.1)
[2016-11-29] MEDS: INSULIN LISPRO 100 UNIT/ML SUBCUT SCH ×2 (07:35→12:00)
[2016-11-29 08:08] LABS: Hematocrit 32.3 VOL% (35.7-47.0)
[2016-11-29] MEDS: PANTOPRAZOLE 40 MG VIAL IV SCH (08:28)
[2016-11-29] MEDS: SODIUM CHLORIDE 0.9% 1,000 ML IV SCH (08:37)
[2016-11-29 08:41] VITALS: BP 118/58
--- NOTE | 2016-11-29 09:52 | Discharge Summary ---
<Stacy Agudelo - Last Filed: 11/29/16 09:44> Hospital Course - Hospital Course Hospital Course: 66-year-old white female with history of GERD, hypertension, diabetes, diverticulitis, GI bleeding, hemorrhoids admitted by the hospitalist service on 11/25/[address] Gagnon from GI was consulted on the patient and he took her for colonoscopy with cold biopsy for pathology and hot biopsy polypectomy on 11/27/2016. There was no source of bleeding and none on bleeding scan. She was taken for EGD on 11/28/2016 where he cauterized the visible vessel of a Dieulafoy's lesion. She was transfused 2 units of PRBCs after this and her H&H was monitored. Patient was transfused a total of 6 units this hospital stay. Her H&H is stable at 11/32.3 and her vital signs are stable. Patient has had no further bleeding. She will be discharged home with follow-up with Dr. Gagnon and follow-up with her nurse practitioner JOELLE Sanchez in [place]. Patient also had a UTI present on admission that will be treated with Cipro on discharge. We will also increase her home dosage of Protonix to twice daily. Complete discharge instructions were given to the patient. Care coordination, chart review, and completed discharge paperwork took approximately 37 minutes. I evaluated this patient and completed an independent history and physical examination. I coordinated care with ELOINA Crespo,[place]. I agree with the documentation that she provides above and below. - Time spent with patient Time with patient DS: Greater than 30 minutes Diagnosis - Discharge Diagnosis (1) Upper GI bleed Status: Resolved (2) Acute posthemorrhagic anemia Status: Resolved (3) Diabetes Status: Chronic Specialty Discharge - Follow Up or Referrals Follow up with: Greer Wynn NP [Primary Care Provider] - 2 Weeks (w HH) Kevon Gagnon MD [Physician] - (call dania for follow up?) Discharge Plan - Discharge Data Disposition: Disch To Home/Self Care Discharge Diet: diabetic diet Activity: resume usual activities as tolerated Contact your physician if you experience:: Nausea/Vomiting, Bleeding - Discharge Medications New Pantoprazole Tab [Protonix Tab] 40 mg PO BID #60 tablet Ciprofloxacin Tab [Cipro Tab] 500 mg PO BID #7 tablet Continue Magnesium Oxide [Magox 400] 800 mg PO BID #120 Metformin HCl 1,000 mg PO AC SUPPER #30 Furosemide 20 mg PO DAILY PRN PRN Reason: Edema Potassium Chloride 20 meq PO DAILY PRN PRN Reason: WITH K DEPLETING DIURETIC Albuterol Neb [Proventil Neb] 2.5 mg RESP TX Q6HR PRN #120 PRN Reason: Shortness Of Breath/Wheezing Ferrous Sulfate 325 mg PO TID Insulin Degludec [Tresiba Flextouch U-100] 20 unit SUBCUT BEDTIME diphenhydrAMINE CAP [Benadryl Cap] 25 mg PO DAILY Discontinued Pantoprazole Tab [Protonix Tab] 40 mg PO AC SUPPER - Follow Up or Referral Follow Up: Kevon Gagnon MD [Physician] - (call dania for follow up?) Greer Wynn NP [Primary Care Provider] - 2 Weeks (w ) - Forms/Instructions Exam - Constitutional Vitals: Period Temp Pulse Resp BP Sys/Rae Pulse Ox Last 24 Hr 97 F-98.4 F 64-79 18-20 100-147/51-78 97-100 Exam: 66-year-old white female, no acute distress, alert and oriented Chest clear CV regular rate and rhythm Abdomen obese, nontender Extremities no edema Discharge Results Procedures and tests throughout hospitalization: Pending Orders 11/26/16 20:08 Occult Blood, Stool Routine 11/28/16 16:30 Urine Culture Routine Labs on day of discharge: Labs from last 24 hours 11/29/16 11/29/16 11/29/16 07:39 07:29 05:44 Hgb 11.0 L Hct 32.3 L Sodium 142 Potassium 3.9 Chloride 111 H Carbon Dioxide 23 Anion Gap 11.9 BUN 12 Creatinine 0.80 GFR Calculation 91 BUN/Creatinine Ratio 15.00 Glucose 108 H POC Glucose 112 H Calculated Osmolality 283.1 Calcium 8.0 L Urine Color Urine Appearance Urine pH Ur Specific Aurora Urine Protein Urine Glucose (UA) Urine Ketones Urine Blood Urine Nitrate Urine Bilirubin Urine Urobilinogen Urine Leukocytes Urine RBC Urine WBC Ur Squamous Epith Cells Urine Bacteria Urine Mucus Ur Culture Indicated? Blood Type Antibody Screen Crossmatch 11/28/16 11/28/16 11/28/16 19:05 16:19 15:19 Hgb Hct Sodium Potassium Chloride Carbon Dioxide Anion Gap BUN Creatinine GFR Calculation BUN/Creatinine Ratio Glucose POC Glucose 201 H 148 H Calculated Osmolality Calcium Urine Color Straw Urine Appearance Clear Urine pH 5.0 Ur Specific Aurora 1.006 Urine Protein Negative Urine Glucose (UA) Negative Urine Ketones Negative Urine Blood Negative Urine Nitrate Negative Urine Bilirubin Negative Urine Urobilinogen < 2.0 H Urine Leukocytes Trace Urine RBC <1 Urine WBC 5 Ur Squamous Epith Cells Occasional Urine Bacteria Occasional Urine Mucus Occasional Ur Culture Indicated? Not indicated Blood Type Antibody Screen Crossmatch 11/28/16 11/28/16 11/28/16 11:42 11:30 11:30 Hgb 9.6 L Hct 29.9 L Sodium Potassium Chloride Carbon Dioxide Anion Gap BUN Creatinine GFR Calculation BUN/Creatinine Ratio Glucose POC Glucose 89 Calculated Osmolality Calcium Urine Color Urine Appearance Urine pH Ur Specific Aurora Urine Protein Urine Glucose (UA) Urine Ketones Urine Blood Urine Nitrate Urine Bilirubin Urine Urobilinogen Urine Leukocytes Urine RBC Urine WBC Ur Squamous Epith Cells Urine Bacteria Urine Mucus Ur Culture Indicated? Blood Type O POSITIVE Antibody Screen Negative Crossmatch See Detail Preliminary micro results at discharge 11/28/16 16:30 Urine Culture - Preliminary Urine,Clean Catch Gram Negative Rods DS: Provider Date of admission: 11/25/16 15:11 Primary care physician: Greer Wynn NP Attending physician on admission: Senthil Mon Consults: 11/25/16 17:19 Consult to Physician [CONS] Routine Comment: Dr Gagnon seen patient last admission Consulting Provider: Kevon Gagnon When should Consulting Provider be notified: Now Consult to Specialist Group: Gastroenterology Person Notified: Juhi Date Notified: 11/26/16 Time Notified: 09:55 Consult Notification Comment: Patient reports recent upper and lower Scope at [facility] but could not remember the name of the physician 11/25/16 18:42 Consult to Dietitian [CONS] Routine Reason for Dietitian: Other Consult Comment: weight loss 11/27/16 09:01 Consult to Anesthesiology [CONS] Routine Consulting Provider: Reason for Anesthesiology: Pre-op Clearance Discharging clinician: AMRIT Brown Expected date of discharge: 11/29/16 <Jada Armenta - Last Filed: 11/29/16 10:38> Hospital Course - Time spent with patient Time with patient DS: Greater than 30 minutes (Total discharge time for this patient, including [id number] time, clinical documentation, medication reconciliation, and discharge planning was 37 minutes.) Diagnosis - Discharge Diagnosis (1) Anemia Status: Resolved (2) Diabetes Status: Chronic (3) Acute posthemorrhagic anemia Status: Resolved (4) Personal history of colonic polyps Status: Resolved (5) Guaiac positive stools Status: Acute Discharge Plan - Discharge Data Condition at Discharge: Stable
--- NOTE | 2016-11-29 10:43 | Gastrointestinal Progress Note ---
Assessment and Plan (1) Anemia Status: Resolved Assessment and plan: This patient has previous upper endoscopy done in September 05, 2013, with hyperplastic polyp and some mild gastritis seen at that time but no bleeding source in addition to a colonoscopy that was done on 10/14/16 which demonstrated 4 polyps all of which were taken off by hot biopsy and may have induced some post polypectomy bleeding. There may have been a missed lesion such as AVMs that might also been of some significance. Given the fact this was the most recent study that was done for ongoing bleeding issues we will go ahead and repeat the colonoscopy first and if this proves to be negative we will repeat the upper endoscopy again. Only 5% of bleeding usually occurs in the small bowel but if these are both negative will arrange for capsule endoscopy likely to be done as an outpatient provided she is stable. We may replace the upper endoscopy with small bowel enteroscopy to see if we can push further into the upper GI tract looking for AVMs if nothing is seen on colonoscopy. A tagged red blood cell scan has been noted to be negative this admission--this is reassuring that there is no active bleeding going on right now. The patient stools are not particularly dark on my exam today, these appear to be brown, but they are grossly guaiac positive. 11/27/16--colonoscopy report as per the following: No bleeding source seen. 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 Small internal hemorrhoids were noted incidentally as well as moderate pandiverticulosis. Will arrange for an upper endoscopy for tomorrow morning to find potential secondary source of bleeding. If this fails to see a source we might consider capsule endoscopy if this admission or as an outpatient. 11/28/16--upper endoscopy did demonstrate the following: The patient has 2 columns of grade 1 varices not thought to be the source the patient's bleeding. In the stomach the patient did have what appeared to be a Dieulafoy's lesion with possible visible vessel tip that was cauterized using BiCAP cautery 4 applications of 15 W. This was thought to be the source the patient's bleeding , mild gastritis with a few erosions near the pyloric channel were also noted and biopsies were taken here as well. Because of her drop in hematocrit to 26% I am going to give her another 2 unit blood transfusion and watch and see how she does for 1 more day before discharging her home potentially tomorrow morning. 11/29/16--the patient has done well status post cauterization of the Dieulafoy's discovered yesterday in the stomach. She is tolerating her solid diet well and her hematocrit is stable at this point. She can certainly be discharged today and the paperwork is already submitted. Review of the pathology of her colonoscopy demonstrates no true polyps but some hyperplastic changes were we thought we saw a polyp previously. She will not need a repeat colonoscopy for 5 years due to the previous adenoma seen by Dr Galeana--so her next colonoscopy will be in November 2021. This patient has a follow-up in my office already for December, we will be happy to repeat her CBC at that time and make sure that she is coming up appropriately. Have patient call my office for specifics as to when exactly the office visit is. Current Visit: No (2) Guaiac positive stools Status: Acute Assessment and plan: This implies a ongoing loss from the GI tract--the patient has remained on pantoprazole as an outpatient and is not taking any further anti-inflammatory agents that might be irritating her stomach. Again I believe that given the proximity to the colonoscopy that the lower GI tract remains the most likely source for potential bleeding. If we fail to find anything on colonoscopy tomorrow we will definitely repeat upper endoscopy versus push enteroscopy on Thursday and potential capsule endoscopy to follow if that too shows no evidence of a GI bleeding source. Risks and benefits of the above procedure were discussed with the patient include but are not limited to: Bleeding, infection, perforation, cardiac and pulmonary compromise. 11/27/16--as noted above, continue Protonix. 11/28/16--The bleeding appear to be coming from a Dieulafoy's lesion in the stomach that is now been cauterized. Continue Protonix 11/29/16--Protonix prescription is written and on the front of the chart. Current Visit: Yes (3) Personal history of colonic polyps Status: Resolved Assessment and plan: This patient had 2 hyperplastic polyps and 2 tubular adenomas removed during her most recent colonoscopy. Further recommendations as noted above post colonoscopy. If further polyps are discovered we may take these off during the exam tomorrow. If upper endoscopy is required we will definitely take biopsies to rule out celiac sprue as well. 11/27/16--repeat colonoscopy in 5 years as this patient has a prior history of adenomas but no significant polyps removed today (2 small polyps removed) await biopsies of ileocecal valve to confirm this was lipomatous. 11/28/16--await pathology. Potential discharge tomorrow if patient is stable 11/29/16--pathology of the most recent polyps demonstrates no gross evidence of lipoma in the ileocecal valve just some changes suggestive of self-limited colitis in addition to some hyperplastic changes, note that this patient previously had an adenoma and will need a repeat colonoscopy in 5 years. Colonoscopy in November 2021. Current Visit: No Gastroenterology - PN: Subj Interval history: Edyta is doing really well today, she is about to be discharged and will be picking up her pantoprazole prescription and friends in [place] shortly. We discussed the Jaysony's lesion and the fact that she may need to come back to the hospital in the future and get rescoped if this should start to bleed again briskly. She appears to be tolerating her solid diet well, and her hematocrit is remained stable. Exam (Progress Note) - Constitutional Vitals: Period Temp Pulse Resp BP Sys/Rae Pulse Ox Last 24 Hr 97 F-98.4 F 64-79 18-20 100-147/51-78 97-100 General appearance: mild distress - Head Head exam: Present: normocephalic - Eye Eye exam: Present: EOMI Pupils: Present: CARLY - Respiratory Respiratory exam: Present: clear to auscultation bilaterally - Cardiovascular Cardiovascular exam: Present: regular rate and rhythm - GI/Abdominal GI/Abdominal exam: Present: normal bowel sounds, soft. Absent: distended, tenderness, rebound - Neurological Exam Neurological exam: Present: alert, oriented X3 - Psychiatric Psychiatric exam: Present: normal affect, normal mood - Skin Skin exam: Present: warm Results - Labs CBC & BMP: 11/29/16 07:39 11/29/16 05:44 Specialty Discharge - Follow Up or Referrals Follow up with: Greer Wynn NP [Primary Care Provider] - 2 Weeks (w HH) Kevon Gagnon MD [Physician] - (call dania for follow up?)
--- NOTE | 2016-12-01 12:24 | Pathology Report from [facility] ---
[facility] ACCESSION # : [id number] PATIENT NAME : Zakiya Vela ORDERING DR : Kevon Gagnon MD CLINICAL HX: Anemia POST-OP DX: #1 R/O Sprue #2 Gastritis SPECIMEN INFO: #1 Duodenal biopsy #2 RADHA GROSS DESCRIPTION: #1 Received in formalin labeled with the patients name ZAKIYA VELA and #1 consists of a 0.7 x 0.3 cm aggregate of alvarado tissue. Submitted in cassette #1.#2 Received in formalin labeled with the patients name ZAKIYA VELA and #2 consists of a 0.7 x 0.3 cm aggregate of alvarado tissue. Submitted in cassette #2. DIAGNOSIS FOR ZAKIYA VELA: #1 DUODENAL BIOPSY: Chronic non-specific duodenitis with normal villous architecture. No evidence of granulomas, parasites, tumor or celiac disease.#2 RADHA BIOPSIES: Chronic superficial gastritis. H. pylori not seen on H&E or special stain with appropriate control. COLLECTED DATE: 11/28/2016 [facility] REPORT DATE: 12/01/2016 ELECTRONICALLY SIGNED BY: Nereyda Watkins M.D. 12/01/2016 - 10:24:00 LISA
== END 2016-11-29 15:30 | disposition home or self-care (01) | DRG 378 ==
LOC: N.ED 13:36 → N.EDINP 15:11 → SUATTDRO 15:11 → N.4E 16:41
PROVIDERS: ATTEND Family Medicine

== ENCOUNTER 2017-03-24 13:35 | Inpatient (IN) ==
[2017-03-24 15:54] LABS: Basophils % 0.4 % (0.0-0.8); Eosinophils # 0.5 10*3/uL (0.0-0.87); Eosinophils % 4.8 % (0.00-10.9); Hematocrit 19.2 VOL% (35.7-47.0); Immature Granulocytes % 0.7 %; Immature Granulocytes Absolute 0.08 #; Lymphocytes # 2.1 10*3/uL (1.4-4.0); Lymphocytes % 18.5 % (21.3-54.2); Mean Corpuscular HGB Conc 32.3 GM/DL (32-36); Mean Corpuscular Hemoglobin 28 PG (27-34); Mean Corpuscular Volume 87.7 FL (87-102); Mean Platelet Volume 9.8 FL (9.6-12.0); Monocytes # 1.2 10*3/uL (0.11-0.8); Monocytes % 10.2 % (1.7-12.7); Neutrophils # 7.4 10*3/uL (1.4-7.4); Neutrophils % 65.4 % (38.7-73.9); Platelet Count 179 T/CUMM (130-400); Red Blood Count 2.19 MC/CUMM (3.8-5.5); Red Cell Distribution Width 15.5 % (9.3-17.3); White Blood Count 11.3 T/CUMM (4-12)
[2017-03-24 16:00] LABS: Apearance,Urine CLEAR (Clear); Bilirubin,Urine Negative (Negative); Blood, Urine Small mg/dL (Negative); Glucose,Urine (UA) 50 mg/dL (Negative); Ketones,Urine Negative (Negative); Mucus,Urine Occasional /LPF (Occasional); Nitrite,Urine Negative (Negative); Protein,Urine Negative; RBC,Urine 2 /HPF (0-4); Squamous Epithelial Cell,Urine Occasional /HPF (0-10); Urine Color Yellow (Yellow); Urine Urobilinogen < 2.0 EU/DL (0.2-1.0); WBC,Urine 3 /HPF (0-6)
[2017-03-24 16:08] LABS: Hemoglobin 6.2 GM/DL (12.0-16.0); INR 1.2; PT Patient Result 12.4 SECS; Partial Thromboplastin Time 24.7 SECS (0-40)
[2017-03-24 16:20] LABS: Bilirubin,Total 0.7 MG/DL (0.2-1.0); Calcium 8.4 MG/DL (8.5-10.1); Osmolality,Calculated 283.5 MOS/KG (273-304); Potassium 3.7 MMOL/L (3.5-5.1); Total Protein 6.3 G/DL (6.4-8.3)
[2017-03-24] MEDS ORDERED: SODIUM CHLORIDE 0.9% 1,000 ML IV PRN (17:46)
[2017-03-24] MEDS ORDERED: ONDANSETRON 4 MG/2 ML VIAL IV PRN (17:46)
[2017-03-24] MEDS ORDERED: GLUCAGON 1 MG VIAL IM PRN (17:51)
[2017-03-24] MEDS ORDERED: DEXTROSE 50% 25 GM/50 ML VIAL IV PRN (17:51)
[2017-03-24] MEDS: INSULIN REGULAR 100 UNIT/ML SUBCUT SCH (21:04)
[2017-03-24] MEDS: PANTOPRAZOLE 40 MG TABLET PO SCH (21:04)
[2017-03-25 07:39] LABS: Hematocrit 19.3 VOL% (35.7-47.0); Hemoglobin 6.7 GM/DL (12.0-16.0)
[2017-03-25] MEDS ORDERED: SODIUM CHLORIDE 0.9% 1,000 ML IV PRN ×2 (09:33→16:50)
[2017-03-25] MEDS: PANTOPRAZOLE 40 MG TABLET PO SCH ×2 (10:31→21:32)
[2017-03-25] MEDS: INSULIN REGULAR 100 UNIT/ML SUBCUT SCH ×4 (10:32→21:32)
[2017-03-25 14:08] LABS: Hemoglobin 6.4 GM/DL (12.0-16.0)
[2017-03-25 14:09] LABS: Hematocrit 19.3 VOL% (35.7-47.0)
[2017-03-25] MEDS: FERROUS SULFATE 325 MG TABLET PO SCH (21:32)
[2017-03-25] MEDS ORDERED: POLYETHYLENE GLYCOL POWDER 17 GM PACK PO PRN (21:36)
[2017-03-25 22:21] LABS: Hematocrit 25.1 VOL% (35.7-47.0)
[2017-03-25 22:23] LABS: Hemoglobin 8.7 GM/DL (12.0-16.0)
[2017-03-26 03:35] LABS: Basophils % 0.7 % (0.0-0.8); Eosinophils # 0.2 10*3/uL (0.0-0.87); Eosinophils % 5.4 % (0.00-10.9); Hematocrit 24.5 VOL% (35.7-47.0); Hemoglobin 8.3 GM/DL (12.0-16.0); Immature Granulocytes % 0.5 %; Immature Granulocytes Absolute 0.02 #; Lymphocytes # 1.1 10*3/uL (1.4-4.0); Lymphocytes % 23.8 % (21.3-54.2); Mean Corpuscular HGB Conc 33.9 GM/DL (32-36); Mean Corpuscular Hemoglobin 28 PG (27-34); Mean Corpuscular Volume 83.9 FL (87-102); Mean Platelet Volume 9.6 FL (9.6-12.0); Monocytes # 0.7 10*3/uL (0.11-0.8); Monocytes % 15.6 % (1.7-12.7); Neutrophils # 2.4 10*3/uL (1.4-7.4); Platelet Count 111 T/CUMM (130-400); Red Blood Count 2.92 MC/CUMM (3.8-5.5); Red Cell Distribution Width 14.8 % (9.3-17.3); White Blood Count 4.4 T/CUMM (4-12)
[2017-03-26 04:05] LABS: Calcium 7.4 MG/DL (8.5-10.1); Magnesium 1.2 MG/DL (1.8-2.4); Osmolality,Calculated 285.3 MOS/KG (273-304); Potassium 3.6 MMOL/L (3.5-5.1)
[2017-03-26 05:29] LABS: Band Neutrophils 1 % (0-10); Eosinophils 3 % (0-10); Lymphocytes 23 % (20-55); Segmented Neutrophils 65 % (50-85); Total Cells Counted 100
[2017-03-26 05:43] LABS: Hypochromasia 1+; Platelet Estimate Adequate
[2017-03-26 05:44] LABS: Microcytosis 1+
[2017-03-26] MEDS: SODIUM CHLORIDE 0.9% 1,000 ML IV SCH (07:45)
[2017-03-26] MEDS: INSULIN REGULAR 100 UNIT/ML SUBCUT SCH ×4 (08:13→21:54)
[2017-03-26 09:51] LABS: Hematocrit 25.7 VOL% (35.7-47.0); Hemoglobin 8.7 GM/DL (12.0-16.0)
[2017-03-26] MEDS: PANTOPRAZOLE 40 MG TABLET PO SCH ×2 (10:12→21:54)
[2017-03-26] MEDS: FERROUS SULFATE 325 MG TABLET PO SCH ×2 (10:12→21:54)
[2017-03-26] MEDS ORDERED: MAGNESIUM CITRATE 300 ML BOTTLE PO ONE (18:00)
[2017-03-26 18:47] LABS: Hematocrit 29.3 VOL% (35.7-47.0); Hemoglobin 9.7 GM/DL (12.0-16.0)
[2017-03-26 20:32] LABS: Hematocrit 30.8 VOL% (35.7-47.0); Hemoglobin 10.3 GM/DL (12.0-16.0)
[2017-03-26] MEDS: guaiFENesin/CODEINE 5 ML LIQUID PO PRN (21:56)
[2017-03-27 08:02] LABS: Basophils % 0.4 % (0.0-0.8); Eosinophils # 0.3 10*3/uL (0.0-0.87); Eosinophils % 6.3 % (0.00-10.9); Hematocrit 30.5 VOL% (35.7-47.0); Hemoglobin 10.2 GM/DL (12.0-16.0); Immature Granulocytes % 0.8 %; Immature Granulocytes Absolute 0.04 #; Lymphocytes % 19.8 % (21.3-54.2); Mean Corpuscular HGB Conc 33.4 GM/DL (32-36); Mean Corpuscular Hemoglobin 28 PG (27-34); Mean Corpuscular Volume 84.7 FL (87-102); Mean Platelet Volume 9.9 FL (9.6-12.0); Monocytes # 0.7 10*3/uL (0.11-0.8); Monocytes % 13.9 % (1.7-12.7); Neutrophils % 58.8 % (38.7-73.9); Platelet Count 130 T/CUMM (130-400); Red Cell Distribution Width 14.7 % (9.3-17.3); White Blood Count 5.1 T/CUMM (4-12)
[2017-03-27] MEDS ORDERED: LIDOCAINE 2% 5 ML VIAL ONE (08:29)
[2017-03-27] MEDS ORDERED: PHENYLEPHRINE 1 MG/10 ML SYRINGE IV ONE (08:29)
[2017-03-27] MEDS ORDERED: PROPOFOL 200 MG/20 ML VIAL IV ONE (08:29)
[2017-03-27 08:33] LABS: Calcium 7.6 MG/DL (8.5-10.1); Osmolality,Calculated 282.4 MOS/KG (273-304); Potassium 4.1 MMOL/L (3.5-5.1)
[2017-03-27] MEDS: FERROUS SULFATE 325 MG TABLET PO SCH ×2 (10:05→21:20)
[2017-03-27] MEDS: INSULIN REGULAR 100 UNIT/ML SUBCUT SCH ×4 (10:06→21:19)
[2017-03-27] MEDS: PANTOPRAZOLE 40 MG TABLET PO SCH ×2 (10:06→21:20)
[2017-03-27] MEDS: SODIUM CHLORIDE 0.9% 1,000 ML IV SCH (10:07)
[2017-03-27] MEDS: guaiFENesin/CODEINE 5 ML LIQUID PO PRN (21:19)
[2017-03-28 06:48] LABS: Basophils % 0.4 % (0.0-0.8); Eosinophils # 0.3 10*3/uL (0.0-0.87); Eosinophils % 7.2 % (0.00-10.9); Hematocrit 28.4 VOL% (35.7-47.0); Hemoglobin 9.3 GM/DL (12.0-16.0); Immature Granulocytes % 0.4 %; Immature Granulocytes Absolute 0.02 #; Lymphocytes # 1.1 10*3/uL (1.4-4.0); Lymphocytes % 23.9 % (21.3-54.2); Mean Corpuscular HGB Conc 32.7 GM/DL (32-36); Mean Corpuscular Hemoglobin 29 PG (27-34); Mean Corpuscular Volume 87.9 FL (87-102); Mean Platelet Volume 10.1 FL (9.6-12.0); Monocytes # 0.6 10*3/uL (0.11-0.8); Monocytes % 13.6 % (1.7-12.7); Neutrophils # 2.6 10*3/uL (1.4-7.4); Neutrophils % 54.5 % (38.7-73.9); Platelet Count 125 T/CUMM (130-400); Red Blood Count 3.23 MC/CUMM (3.8-5.5); Red Cell Distribution Width 14.6 % (9.3-17.3); White Blood Count 4.7 T/CUMM (4-12)
[2017-03-28] MEDS: SODIUM CHLORIDE 0.9% 1,000 ML IV SCH (08:27)
[2017-03-28] MEDS: PANTOPRAZOLE 40 MG TABLET PO SCH (08:27)
[2017-03-28] MEDS: FERROUS SULFATE 325 MG TABLET PO SCH (08:27)
[2017-03-28] MEDS: guaiFENesin/CODEINE 5 ML LIQUID PO PRN (08:27)
[2017-03-28] MEDS: INSULIN REGULAR 100 UNIT/ML SUBCUT SCH ×2 (08:32→12:33)
[2017-03-28 12:40] VITALS: BP 94/54
== END 2017-03-28 15:13 | disposition home or self-care (01) | DRG 378 ==
LOC: N.ED 13:35 → SUATTDRO 17:19 → N.EDINP 17:36 → N.TELES 18:34 → N.5E 03-27 17:33
PROVIDERS: ADMIT Internal Medicine; ATTEND Internal Medicine Nephrology

== ENCOUNTER 2017-04-13 15:26 | Inpatient (IN) ==
[2017-04-13] MEDS ORDERED: SODIUM CHLORIDE 0.9% 500 ML IV STA (16:24)
[2017-04-13 16:45] LABS: Basophils % 0.5 % (0.0-0.8); Eosinophils # 0.1 10*3/uL (0.0-0.87); Eosinophils % 2.4 % (0.00-10.9); Hematocrit 18.3 VOL% (35.7-47.0); Immature Granulocytes % 0.5 %; Immature Granulocytes Absolute 0.01 #; Lymphocytes # 0.8 10*3/uL (1.4-4.0); Mean Corpuscular HGB Conc 30.6 GM/DL (32-36); Mean Corpuscular Hemoglobin 27 PG (27-34); Mean Corpuscular Volume 89.3 FL (87-102); Mean Platelet Volume 10.2 FL (9.6-12.0); Monocytes # 0.2 10*3/uL (0.11-0.8); Monocytes % 11.7 % (1.7-12.7); Neutrophils % 46.9 % (38.7-73.9); Platelet Count 96 T/CUMM (130-400); Red Blood Count 2.05 MC/CUMM (3.8-5.5); White Blood Count 2.1 T/CUMM (4-12)
[2017-04-13 16:48] LABS: Hemoglobin 5.6 GM/DL (12.0-16.0)
[2017-04-13] MEDS ORDERED: SODIUM CHLORIDE 0.9% 1,000 ML IV PRN ×3 (16:51→17:41)
[2017-04-13 17:07] LABS: Calcium 7.4 MG/DL (8.5-10.1); Magnesium 1.3 MG/DL (1.8-2.4); Osmolality,Calculated 283.4 MOS/KG (273-304); Potassium 3.8 MMOL/L (3.5-5.1)
[2017-04-13 17:38] LABS: Band Neutrophils 3 % (0-10); Eosinophils 4 % (0-10); Lymphocytes 46 % (20-55); Myelocytes 3 %; Nucleated Red Blood Cells 1 (0-5); Segmented Neutrophils 43 % (50-85); Total Cells Counted 100
[2017-04-13 17:39] LABS: Anisocytosis 1+; Hypochromasia 1+; Platelet Estimate Decreased
[2017-04-13] MEDS ORDERED: GLUCAGON 1 MG VIAL IM PRN (17:41)
[2017-04-13] MEDS ORDERED: DEXTROSE 50% 25 GM/50 ML VIAL IV PRN (17:41)
[2017-04-13 17:58] LABS: Hemoglobin 5.4 GM/DL (12.0-16.0)
[2017-04-13 17:59] LABS: Hematocrit 17.7 VOL% (35.7-47.0)
[2017-04-13] MEDS: PANTOPRAZOLE INJ 200 MG in SODIUM CHLORIDE 0.9% 250 ML IV SCH (19:53)
[2017-04-13] MEDS ORDERED: traMADol 50 MG TABLET PO STA (21:43)
[2017-04-13] MEDS: SODIUM CHLORIDE 0.9% 1,000 ML IV SCH (23:47)
[2017-04-13] MEDS: INSULIN REGULAR 100 UNIT/ML SUBCUT SCH (23:53)
[2017-04-14 04:53] LABS: Hematocrit 21.2 VOL% (35.7-47.0)
[2017-04-14 05:11] LABS: Hemoglobin 6.8 GM/DL (12.0-16.0)
[2017-04-14] MEDS ORDERED: MAGNESIUM SULF RIDER 4 GM in PREMIX 1 EACH IV ONE (08:21)
[2017-04-14] MEDS ORDERED: SODIUM CHLORIDE 0.9% 1,000 ML IV PRN ×3 (08:21→16:47)
[2017-04-14 10:54] LABS: Albumin 2.2 G/DL (3.4-5.0); Bilirubin,Total 0.6 MG/DL (0.2-1.0); Calcium 7.2 MG/DL (8.5-10.1); Osmolality,Calculated 284.1 MOS/KG (273-304); Potassium 3.8 MMOL/L (3.5-5.1); Total Protein 4.4 G/DL (6.4-8.3)
[2017-04-14 11:07] LABS: Basophils % 0.4 % (0.0-0.8); Eosinophils # 0.2 10*3/uL (0.0-0.87); Eosinophils % 5.9 % (0.00-10.9); Hematocrit 24.4 VOL% (35.7-47.0); Hemoglobin 7.5 GM/DL (12.0-16.0); Immature Granulocytes % 0.8 %; Immature Granulocytes Absolute 0.02 #; Lymphocytes # 1.1 10*3/uL (1.4-4.0); Lymphocytes % 41.7 % (21.3-54.2); Mean Corpuscular HGB Conc 30.7 GM/DL (32-36); Mean Corpuscular Hemoglobin 28 PG (27-34); Mean Platelet Volume 10.3 FL (9.6-12.0); Monocytes # 0.3 10*3/uL (0.11-0.8); Monocytes % 11.8 % (1.7-12.7); Neutrophils % 39.4 % (38.7-73.9); Platelet Count 101 T/CUMM (130-400); Red Blood Count 2.68 MC/CUMM (3.8-5.5); Red Cell Distribution Width 14.8 % (9.3-17.3); White Blood Count 2.5 T/CUMM (4-12)
[2017-04-14 11:30] LABS: Band Neutrophils 3 % (0-10); Hypochromasia 1+; Lymphocytes 37 % (20-55); Segmented Neutrophils 51 % (50-85); Total Cells Counted 100
[2017-04-14 11:31] LABS: Microcytosis 1+; Ovalocytes Slight; Platelet Estimate Decreased; Tear Drop Cells Slight
[2017-04-14] MEDS ORDERED: HYDROcodone/HOMATROPINE 5 ML UDCUP PO PRN (16:44)
[2017-04-14] MEDS: INSULIN REGULAR 100 UNIT/ML SUBCUT SCH ×2 (18:58→23:02)
[2017-04-14] MEDS: PANTOPRAZOLE INJ 200 MG in SODIUM CHLORIDE 0.9% 250 ML IV SCH (21:57)
[2017-04-14] MEDS: SODIUM CHLORIDE 0.9% 1,000 ML IV SCH (22:00)
[2017-04-15 02:37] LABS: Basophils % 0.4 % (0.0-0.8); Eosinophils # 0.2 10*3/uL (0.0-0.87); Eosinophils % 6.8 % (0.00-10.9); Hematocrit 26.5 VOL% (35.7-47.0); Hematocrit 26.7 VOL% (35.7-47.0); Hemoglobin 8.4 GM/DL (12.0-16.0); Hemoglobin 8.8 GM/DL (12.0-16.0); Immature Granulocytes % 0.4 %; Immature Granulocytes Absolute 0.01 #; Lymphocytes % 40.2 % (21.3-54.2); Mean Corpuscular HGB Conc 31.7 GM/DL (32-36); Mean Corpuscular Hemoglobin 29 PG (27-34); Mean Corpuscular Volume 89.8 FL (87-102); Mean Platelet Volume 10.4 FL (9.6-12.0); Monocytes # 0.3 10*3/uL (0.11-0.8); Neutrophils % 40.2 % (38.7-73.9); Platelet Count 100 T/CUMM (130-400); Red Blood Count 2.95 MC/CUMM (3.8-5.5); Red Cell Distribution Width 14.6 % (9.3-17.3); White Blood Count 2.5 T/CUMM (4-12)
[2017-04-15 02:47] LABS: INR 1.2; PT Patient Result 12.7 SECS
[2017-04-15 03:08] LABS: Calcium 7.1 MG/DL (8.5-10.1); Osmolality,Calculated 283.1 MOS/KG (273-304); Potassium 3.6 MMOL/L (3.5-5.1)
[2017-04-15 03:15] LABS: Band Neutrophils 2 % (0-10); Lymphocytes 46 % (20-55); Platelet Estimate Decreased; Segmented Neutrophils 49 % (50-85); Total Cells Counted 100
[2017-04-15] MEDS: SODIUM CHLORIDE 0.9% 1,000 ML IV SCH (05:55)
[2017-04-15] MEDS ORDERED: GLUCAGON 1 MG VIAL ONE (08:39)
[2017-04-15] MEDS ORDERED: ONDANSETRON 4 MG/2 ML VIAL ONE (08:57)
[2017-04-15] MEDS ORDERED: ONDANSETRON 4 MG/2 ML VIAL IV ONE (09:07)
[2017-04-15] MEDS ORDERED: EPINEPHrine 1 MG/ML VIAL ONE (09:40)
[2017-04-15] MEDS ORDERED: PROPOFOL 200 MG/20 ML VIAL IV ONE (11:45)
[2017-04-15] MEDS ORDERED: LIDOCAINE 2% 5 ML VIAL ONE (11:45)
[2017-04-15] MEDS: INSULIN REGULAR 100 UNIT/ML SUBCUT SCH ×4 (13:41→21:02)
[2017-04-15 14:08] LABS: Hematocrit 30.6 VOL% (35.7-47.0); Hemoglobin 9.9 GM/DL (12.0-16.0)
[2017-04-15 17:16] LABS: Hematocrit 28.2 VOL% (35.7-47.0)
[2017-04-16 01:23] LABS: Basophils % 0.3 % (0.0-0.8); Eosinophils # 0.2 10*3/uL (0.0-0.87); Eosinophils % 5.2 % (0.00-10.9); Hematocrit 25.3 VOL% (35.7-47.0); Hemoglobin 8.5 GM/DL (12.0-16.0); Immature Granulocytes % 0.3 %; Immature Granulocytes Absolute 0.01 #; Lymphocytes # 0.9 10*3/uL (1.4-4.0); Lymphocytes % 29.8 % (21.3-54.2); Mean Corpuscular HGB Conc 33.6 GM/DL (32-36); Mean Corpuscular Hemoglobin 29 PG (27-34); Mean Corpuscular Volume 86.9 FL (87-102); Mean Platelet Volume 10.3 FL (9.6-12.0); Monocytes # 0.4 10*3/uL (0.11-0.8); Monocytes % 12.6 % (1.7-12.7); Neutrophils # 1.6 10*3/uL (1.4-7.4); Neutrophils % 51.8 % (38.7-73.9); Platelet Count 110 T/CUMM (130-400); Red Blood Count 2.91 MC/CUMM (3.8-5.5); Red Cell Distribution Width 15.3 % (9.3-17.3); White Blood Count 3.1 T/CUMM (4-12)
[2017-04-16 02:27] LABS: Calcium 7.1 MG/DL (8.5-10.1); Osmolality,Calculated 291.6 MOS/KG (273-304); Potassium 3.6 MMOL/L (3.5-5.1)
[2017-04-16] MEDS: SODIUM CHLORIDE 0.9% 1,000 ML IV SCH ×4 (04:13→22:21)
[2017-04-16] MEDS ORDERED: PANTOPRAZOLE 40 MG VIAL IV SCH (09:00)
[2017-04-16 09:46] LABS: Hematocrit 28.9 VOL% (35.7-47.0); Hemoglobin 9.3 GM/DL (12.0-16.0)
[2017-04-16 10:13] LABS: Hepatitis A Ab IgM Quant 0.12 Index; Hepatitis A Ab IgM Result Negative (Negative); Hepatitis B Core IgM Quant 0.16 Index; Hepatitis B Core IgM Result Negative (Negative); Hepatitis B Surface Ag Quant < 0.10 Index; Hepatitis B Surface Ag Result Negative (Negative); Hepatitis C Virus Ab Quant 0.04 Index; Hepatitis C Virus Ab Result Negative (Negative)
[2017-04-16 10:18] LABS: Folate 15.5 NG/ML (5.4-24.0)
[2017-04-16] MEDS: INSULIN REGULAR 100 UNIT/ML SUBCUT SCH ×4 (10:41→20:53)
[2017-04-16] MEDS: SUCRALFATE 1 GM/10 ML UDCUP PO SCH ×3 (12:19→20:53)
[2017-04-16 17:23] LABS: Hepatitis A Ab IgM Quant 0.12 Index; Hepatitis A Ab IgM Result Negative (Negative); Hepatitis B Core IgM Quant 0.16 Index; Hepatitis B Core IgM Result Negative (Negative); Hepatitis B Surface Ag Quant < 0.10 Index; Hepatitis B Surface Ag Result Negative (Negative); Hepatitis C Virus Ab Quant 0.05 Index; Hepatitis C Virus Ab Result Negative (Negative)
[2017-04-16 17:31] LABS: Hematocrit 26.9 VOL% (35.7-47.0); Hemoglobin 8.4 GM/DL (12.0-16.0)
[2017-04-16] MEDS: POLYETHYLENE GLYCOL POWDER 17 GM PACK PO SCH (20:53)
[2017-04-17 01:06] LABS: Basophils % 0.3 % (0.0-0.8); Eosinophils # 0.2 10*3/uL (0.0-0.87); Eosinophils % 7.8 % (0.00-10.9); Hematocrit 25.1 VOL% (35.7-47.0); Hematocrit 25.8 VOL% (35.7-47.0); Hemoglobin 8.3 GM/DL (12.0-16.0); Hemoglobin 8.4 GM/DL (12.0-16.0); Immature Granulocytes % 0.3 %; Immature Granulocytes Absolute 0.01 #; Lymphocytes # 0.9 10*3/uL (1.4-4.0); Lymphocytes % 31.1 % (21.3-54.2); Mean Corpuscular HGB Conc 32.6 GM/DL (32-36); Mean Corpuscular Hemoglobin 28 PG (27-34); Mean Corpuscular Volume 87.2 FL (87-102); Mean Platelet Volume 10.1 FL (9.6-12.0); Monocytes # 0.4 10*3/uL (0.11-0.8); Monocytes % 12.8 % (1.7-12.7); Neutrophils # 1.4 10*3/uL (1.4-7.4); Neutrophils % 47.7 % (38.7-73.9); Platelet Count 115 T/CUMM (130-400); Red Blood Count 2.96 MC/CUMM (3.8-5.5)
[2017-04-17] MEDS: SODIUM CHLORIDE 0.9% 1,000 ML IV SCH ×2 (06:17→14:57)
[2017-04-17] MEDS: INSULIN REGULAR 100 UNIT/ML SUBCUT SCH ×2 (08:20→13:55)
[2017-04-17] MEDS: SUCRALFATE 1 GM/10 ML UDCUP PO SCH ×3 (08:32→16:11)
[2017-04-17] MEDS: POLYETHYLENE GLYCOL POWDER 17 GM PACK PO SCH ×2 (08:34→15:20)
[2017-04-17 09:18] LABS: Hemoglobin 8.2 GM/DL (12.0-16.0)
[2017-04-17 11:35] VITALS: BP 122/58
== END 2017-04-17 16:20 | disposition home or self-care (01) | DRG 393 ==
LOC: EDUNIT# → EDBD → N.ED 15:26 → SUATTDRO 17:32 → N.EDINP 17:32 → N.4E 04-14 15:38
PROVIDERS: ADMIT Internal Medicine; ATTEND Pediatrics